=== PATIENT | male | born 1930 | race Caucasian/White ===

== ENCOUNTER 2017-01-11 09:15 | Inpatient (IN) | payer MEDICARE, OTHER ==
[2017-01-11 16:18] LABS: Mean Cell Volume 89.3 fl (78-100); Mean Corpuscular Hemoglobin 30.2 pg (26-32); Platelet Count 181 K/mm3 (150-450); Red Blood Count 5.13 M/mm3 (4.1-5.6); Red Cell Distribution Width 14.3 % (11.5-14.0); White Blood Count 17.4 K/mm3 (4.0-10.5)
[2017-01-11] MEDS ORDERED: Sodium Chloride 0.9% 500 ML 500 ML IV SCH (16:30)
[2017-01-11 16:55] LABS: ALBUMIN 3.6 g/dL (3.4-5.0); ALKALINE PHOSPHATASE 88 U/L (46-116); ANION GAP 16.2 MEQ/L (5-15); BILIRUBIN,TOTAL 1.3 mg/dL (0.2-1.0); BLOOD UREA NITROGEN 15 mg/dL (9-20); CHLORIDE 101 mEq/L (98-107); Carbon Dioxide 21.6 mEq/L (21-32); Glucose 133 MG/DL (70-110); Potassium 4.2 mEq/L (3.5-5.1); SGOT/AST 16 U/L (15-37); SGPT/ALT 14 U/L (12-78); SODIUM 135 mEq/L (136-145)
[2017-01-11] MEDS: Sodium Chloride 0.9% 1000 ML 1,000 ML IV SCH (16:59)
[2017-01-11] MEDS: ROCEPHIN 1 Gm-D5w 50 ml Bag** 50 ML IV SCH (17:00)
[2017-01-11 17:23] LABS: BAND 1 % (0.0-2.0); Platelet Estimate NORMAL (NORMAL); Total Cells Counted 100
[2017-01-11 17:24] LABS: ANISOCYTOSIS 1+
[2017-01-11] MEDS ORDERED: Protonix 40MG Tablet ONE (21:40)
[2017-01-11] MEDS: COREG 12.5 MG PO SCH (21:54)
[2017-01-11] MEDS: ZOCOR 20MG PO SCH (21:54)
[2017-01-11] MEDS: Zestril 20 MG PO SCH (21:54)
[2017-01-11] MEDS ORDERED: Protonix 20MG Tablet PO ONE (22:00)
[2017-01-11] MEDS ORDERED: PLAVIX 75 MG Tablet PO ONE (22:00)
[2017-01-12] MEDS: Sodium Chloride 0.9% 1000 ML 1,000 ML IV SCH ×2 (04:10→13:54)
[2017-01-12] MEDS ORDERED: TYLENOL 325 MG PO PRN (04:41)
[2017-01-12 05:57] LABS: BASOPHIL % 0.2 % (0.0-0.4); Eosinophil % 0.6 % (0.00-5.0); Granulocytes % 79.1 % (36.0-66.0); Mean Cell Volume 90.4 fl (78-100); Mean Corpuscular Hemoglobin 30.3 pg (26-32); Monocytes % 9.1 % (0.0-12.0); Platelet Count 157 K/mm3 (150-450); Red Blood Count 4.49 M/mm3 (4.1-5.6); Red Cell Distribution Width 14.3 % (11.5-14.0); White Blood Count 13.2 K/mm3 (4.0-10.5)
[2017-01-12 06:19] LABS: ALBUMIN 2.9 g/dL (3.4-5.0); ALKALINE PHOSPHATASE 70 U/L (46-116); BLOOD UREA NITROGEN 13 mg/dL (9-20); CHLORIDE 103 mEq/L (98-107); Carbon Dioxide 23.7 mEq/L (21-32); Glucose 114 MG/DL (70-110); SGOT/AST 11 U/L (15-37); SGPT/ALT 7 U/L (12-78); SODIUM 135 mEq/L (136-145); Total Protein 5.9 gm/dL (6.4-8.2)
--- NOTE | 2017-01-12 08:49 | XRAY ---
Indication: Fatigue. UTI. Possible sepsis. Comparison: June 29, 2016. PA/lateral chest less inflated accentuating the cardiopulmonary structures. Lateral view limited due to patient's arm and respiration artifact. New bibasilar infiltrates versus atelectasis without consolidation or large effusion. Heart is borderline in enlarged again demonstrating previous CABG surgery and left-sided Port-A-Cath. Bony thorax intact again with mild osteopenia and degenerative changes. Impression: Underinflated chest with new bibasilar infiltrate/atelectasis. Correlate clinically. Comment: Preliminary interpretation was made by [facility]. No discrepancy.
[2017-01-12] MEDS: COREG 12.5 MG PO SCH ×2 (09:00→21:53)
[2017-01-12] MEDS: Flomax 0.4 MG PO SCH (09:01)
[2017-01-12] MEDS: PLAVIX 75 MG Tablet PO SCH (09:01)
[2017-01-12] MEDS: NORVASC 5 MG PO SCH (09:01)
[2017-01-12] MEDS: Protonix 40MG Tablet PO SCH (09:02)
[2017-01-12] MEDS: Zestril 20 MG PO SCH ×2 (09:02→21:53)
--- NOTE | 2017-01-12 09:17 | PCM.NOTE ---
Date and Time: 01/12/17914 Subjective Assessment: patient reports improvement in symptoms, urinating less frequently overnight and was able to get some sleep. no significant hx of cough Objective Exam General Appearance: no apparent distress, alert Respiratory Exam: normal breath sounds, lungs clear, No respiratory distress Cardiovascular Exam: regular rate/rhythm, normal heart sounds Gastrointestinal/Abdomen Exam: soft, No tenderness, No mass Extremity Exam: normal inspection, normal range of motion OBJECTIVE DATA Vital Signs: Vital Signs - 24 hr Temp Pulse Resp BP Pulse Ox 01/12/17 07:16 97.8 F 70 20 120/64 96 01/12/17 05:07 99.4 F 01/12/17 04:00 100.6 F 72 20 118/63 93 L 01/12/17 00:00 98.1 F 79 20 121/77 95 01/11/17 20:00 97.7 F 77 18 127/72 95 01/11/17 16:16 97.9 F 78 162/73 01/11/17 15:44 97.9 F 78 18 162/73 95 Pain Assessment - Last Documented Pain Intensity 0 Pain Scale Used 0-10 Pain Scale Intake and Output: Intake & Output 01/09/17 01/10/17 01/11/17 01/12/17 11:59 11:59 11:59 11:59 Intake Total 2814 Output Total 650 Balance 2164 Weight 97.023 kg Lab Results: Lab Results-Last 24 Hours 01/11/17 01/11/17 01/12/17 Range/Units 16:10 16:10 05:05 WBC 17.4 H 13.2 H (4.0-10.5) K/mm3 RBC 5.13 4.49 (4.1-5.6) M/mm3 Hgb 15.5 13.6 (12.5-18.0) gm/dl Hct 45.8 40.6 L (42-50) % MCV 89.3 90.4 (78-100) fl MCH 30.2 30.3 (26-32) pg MCHC 33.8 33.5 (32-36) g/dl RDW 14.3 H 14.3 H (11.5-14.0) % Plt Count 181 157 (150-450) K/mm3 MPV 10.0 H 10.0 H (6-9.5) fl Gran % 79.1 H (36.0-66.0) % Lymphocytes % 11.0 L (24.0-44.0) % Monocytes % 9.1 (0.0-12.0) % Eosinophils % 0.6 (0.00-5.0) % Basophils % 0.2 (0.0-0.4) % Segmented Neutrophils 87 H (36.-66.) % Band Neutrophils 1 (0.0-2.0) % Lymphocytes (Manual) 9 L (24-44) % Monocytes (Manual) 3 (0.0-12.0) % Basophils # 0.03 (0-0.4) Differential Comment ABNORMAL Platelet Estimate NORMAL (NORMAL) Anisocytosis 1+ Sodium 135 L (136-145) mEq/L Potassium 4.2 (3.5-5.1) mEq/L Chloride 101 (98-107) mEq/L Carbon Dioxide 21.6 (21-32) mEq/L Anion Gap 16.2 H (5-15) MEQ/L BUN 15 (9-20) mg/dL Creatinine 1.06 (0.55-1.30) mg/dl Estimated GFR > 60 ML/MIN Glucose 133 H (70-110) MG/DL Calcium 8.8 (8.5-10.1) mg/dL Total Bilirubin 1.3 H (0.2-1.0) mg/dL AST 16 (15-37) U/L ALT 14 (12-78) U/L Alkaline Phosphatase 88 (46-116) U/L Serum Total Protein 7.0 (6.4-8.2) gm/dL Albumin 3.6 (3.4-5.0) g/dL 01/12/17 Range/Units 05:05 WBC (4.0-10.5) K/mm3 RBC (4.1-5.6) M/mm3 Hgb (12.5-18.0) gm/dl Hct (42-50) % MCV (78-100) fl MCH (26-32) pg MCHC (32-36) g/dl RDW (11.5-14.0) % Plt Count (150-450) K/mm3 MPV (6-9.5) fl Gran % (36.0-66.0) % Lymphocytes % (24.0-44.0) % Monocytes % (0.0-12.0) % Eosinophils % (0.00-5.0) % Basophils % (0.0-0.4) % Segmented Neutrophils (36.-66.) % Band Neutrophils (0.0-2.0) % Lymphocytes (Manual) (24-44) % Monocytes (Manual) (0.0-12.0) % Basophils # (0-0.4) Differential Comment Platelet Estimate (NORMAL) Anisocytosis Sodium 135 L (136-145) mEq/L Potassium 4.0 (3.5-5.1) mEq/L Chloride 103 (98-107) mEq/L Carbon Dioxide 23.7 (21-32) mEq/L Anion Gap 12.0 (5-15) MEQ/L BUN 13 (9-20) mg/dL Creatinine 0.99 (0.55-1.30) mg/dl Estimated GFR > 60 ML/MIN Glucose 114 H (70-110) MG/DL Calcium 8.2 L (8.5-10.1) mg/dL Total Bilirubin 1.0 (0.2-1.0) mg/dL AST 11 L (15-37) U/L ALT 7 L (12-78) U/L Alkaline Phosphatase 70 (46-116) U/L Serum Total Protein 5.9 L (6.4-8.2) gm/dL Albumin 2.9 L (3.4-5.0) g/dL Radiology Exams: Radiology Procedures Category Date Time Status CHEST 2 VIEWS (PA AND LAT) Routine Exams 01/11/17 16:15 Completed Assessment/Plan (1) UTI (urinary tract infection) Current Visit: Yes Status: Acute Assessment & Plan: on rocephin Code(s): N39.0 - URINARY TRACT INFECTION, SITE NOT SPECIFIED (2) Fever Current Visit: Yes Status: Acute Assessment & Plan: will check flu swab today Code(s): R50.9 - FEVER, UNSPECIFIED (3) Dehydration Current Visit: Yes Status: Acute Assessment & Plan: IV fluids replacing Code(s): E86.0 - DEHYDRATION
[2017-01-12] MEDS ORDERED: NON-FORMULARY ITEM (Esomeprazole Magnesium [Nexium] 20 MG) PO SCH (10:00)
[2017-01-12] MEDS: ROCEPHIN 1 Gm-D5w 50 ml Bag** 50 ML IV SCH (16:18)
[2017-01-12] MEDS: ZOCOR 20MG PO SCH (21:53)
[2017-01-13] MEDS: Sodium Chloride 0.9% 1000 ML 1,000 ML IV SCH ×2 (01:26→11:04)
[2017-01-13] MEDS: Ambien 10 MG PO PRN ×2 (01:36→21:00)
[2017-01-13 05:46] LABS: BASOPHIL % 0.3 % (0.0-0.4); Eosinophil % 1.8 % (0.00-5.0); Granulocytes % 63.4 % (36.0-66.0); Lymphocytes % 21.7 % (24.0-44.0); Mean Cell Volume 90.5 fl (78-100); Mean Corpuscular Hemoglobin 29.5 pg (26-32); Mean Platelet Volume 10.1 fl (6-9.5); Monocytes % 12.8 % (0.0-12.0); Platelet Count 152 K/mm3 (150-450); Red Blood Count 4.41 M/mm3 (4.1-5.6); Red Cell Distribution Width 14.1 % (11.5-14.0); White Blood Count 7.3 K/mm3 (4.0-10.5)
[2017-01-13 06:05] LABS: ALBUMIN 2.5 g/dL (3.4-5.0); ALKALINE PHOSPHATASE 71 U/L (46-116); ANION GAP 13.5 MEQ/L (5-15); BILIRUBIN,TOTAL 0.4 mg/dL (0.2-1.0); BLOOD UREA NITROGEN 13 mg/dL (9-20); CHLORIDE 106 mEq/L (98-107); Carbon Dioxide 24.6 mEq/L (21-32); Glucose 100 MG/DL (70-110); Potassium 3.9 mEq/L (3.5-5.1); SGOT/AST 13 U/L (15-37); SGPT/ALT 10 U/L (12-78); SODIUM 140 mEq/L (136-145); Total Protein 5.6 gm/dL (6.4-8.2)
--- NOTE | 2017-01-13 08:42 | PCM.NOTE ---
Date and Time: 01/13/17840 Subjective Assessment: patient feels well today, voiding well. slept well and has no new complaints Objective Exam General Appearance: no apparent distress, alert Respiratory Exam: normal breath sounds, lungs clear, No respiratory distress Cardiovascular Exam: regular rate/rhythm, normal heart sounds Gastrointestinal/Abdomen Exam: soft, No tenderness, No mass Extremity Exam: normal inspection, normal range of motion OBJECTIVE DATA Vital Signs: Vital Signs - 24 hr Temp Pulse Resp BP Pulse Ox 01/13/17 07:28 99 F 67 20 132/75 96 01/13/17 04:00 100.3 F 69 22 120/55 95 01/13/17 00:00 99.0 F 73 18 131/63 96 01/12/17 20:00 99.4 F 75 20 165/75 95 01/12/17 16:27 98.6 F 89 20 160/75 97 01/12/17 11:15 97.6 F 68 20 129/82 97 Pain Assessment - Last Documented Pain Intensity 0 Pain Scale Used 0-10 Pain Scale Intake and Output: Intake & Output 01/10/17 01/11/17 01/12/17 01/13/17 11:59 11:59 11:59 11:59 Intake Total 2814 4029 Output Total 650 2650 Balance 2164 1379 Weight 97.023 kg Lab Results: Lab Results-Last 24 Hours 01/12/17 01/13/17 01/13/17 Range/Units 09:14 05:15 05:15 WBC 7.3 (4.0-10.5) K/mm3 RBC 4.41 (4.1-5.6) M/mm3 Hgb 13.0 (12.5-18.0) gm/dl Hct 39.9 L (42-50) % MCV 90.5 (78-100) fl MCH 29.5 (26-32) pg MCHC 32.6 (32-36) g/dl RDW 14.1 H (11.5-14.0) % Plt Count 152 (150-450) K/mm3 MPV 10.1 H (6-9.5) fl Gran % 63.4 (36.0-66.0) % Lymphocytes % 21.7 L (24.0-44.0) % Monocytes % 12.8 H (0.0-12.0) % Eosinophils % 1.8 (0.00-5.0) % Basophils % 0.3 (0.0-0.4) % Basophils # 0.02 (0-0.4) Sodium 140 (136-145) mEq/L Potassium 3.9 (3.5-5.1) mEq/L Chloride 106 (98-107) mEq/L Carbon Dioxide 24.6 (21-32) mEq/L Anion Gap 13.5 (5-15) MEQ/L BUN 13 (9-20) mg/dL Creatinine 0.99 (0.55-1.30) mg/dl Estimated GFR > 60 ML/MIN Glucose 100 (70-110) MG/DL Calcium 8.1 L (8.5-10.1) mg/dL Total Bilirubin 0.4 (0.2-1.0) mg/dL AST 13 L (15-37) U/L ALT 10 L (12-78) U/L Alkaline Phosphatase 71 (46-116) U/L Serum Total Protein 5.6 L (6.4-8.2) gm/dL Albumin 2.5 L (3.4-5.0) g/dL Influenza Type A Ag NEGATIVE (NEGATIVE) Influenza Type B Ag NEGATIVE (NEGATIVE) RSV (PCR) NEGATIVE (Negative) Radiology Exams: Radiology Procedures Category Date Time Status CHEST 2 VIEWS (PA AND LAT) Routine Exams 01/11/17 16:15 Completed Assessment/Plan (1) UTI (urinary tract infection) Current Visit: Yes Status: Acute Assessment & Plan: continue rocephin, urine and blood cx pending, should have results today hopefully Code(s): N39.0 - URINARY TRACT INFECTION, SITE NOT SPECIFIED (2) Fever Current Visit: Yes Status: Acute Code(s): R50.9 - FEVER, UNSPECIFIED (3) Dehydration Current Visit: Yes Status: Acute Code(s): E86.0 - DEHYDRATION
[2017-01-13] MEDS: COREG 12.5 MG PO SCH ×2 (09:47→21:01)
[2017-01-13] MEDS: PLAVIX 75 MG Tablet PO SCH (09:48)
[2017-01-13] MEDS: Flomax 0.4 MG PO SCH (09:48)
[2017-01-13] MEDS: Protonix 40MG Tablet PO SCH (09:48)
[2017-01-13] MEDS: NORVASC 5 MG PO SCH (09:48)
[2017-01-13] MEDS: Zestril 20 MG PO SCH ×2 (09:48→21:00)
[2017-01-13] MEDS ORDERED: FLUZONE HIGH-DOSE 2016-17 SYR IM ONE (10:00)
[2017-01-13] MEDS ORDERED: PREVNAR 13 SYRINGE IM ONE (10:00)
[2017-01-13] MEDS: ROCEPHIN 1 Gm-D5w 50 ml Bag** 50 ML IV SCH (17:05)
[2017-01-13] MEDS: ZOCOR 20MG PO SCH (21:00)
[2017-01-14 05:54] LABS: BASOPHIL % 0.4 % (0.0-0.4); Eosinophil % 2.8 % (0.00-5.0); Granulocytes % 67.2 % (36.0-66.0); Lymphocytes % 16.4 % (24.0-44.0); Mean Corpuscular Hemoglobin 30.1 pg (26-32); Monocytes % 13.2 % (0.0-12.0); Platelet Count 179 K/mm3 (150-450); Red Blood Count 4.55 M/mm3 (4.1-5.6); Red Cell Distribution Width 13.9 % (11.5-14.0); White Blood Count 7.2 K/mm3 (4.0-10.5)
[2017-01-14 06:14] LABS: ANION GAP 14.9 MEQ/L (5-15); BLOOD UREA NITROGEN 8 mg/dL (9-20); CHLORIDE 103 mEq/L (98-107); Carbon Dioxide 22.7 mEq/L (21-32); Glucose 135 MG/DL (70-110); Potassium 3.9 mEq/L (3.5-5.1); SODIUM 137 mEq/L (136-145)
[2017-01-14] MEDS ORDERED: Lasix 20 MG/2 ML IV ONE (08:19)
--- NOTE | 2017-01-14 08:23 | PCM.NOTE ---
Date and Time: 01/14/17819 Subjective Assessment: patient had some confusion last night, fell and tore skin on left hand. was trying to go to restroom in the dark, states he couldn't find his call light to ask for help. he denies cough or congestion Objective Exam General Appearance: no apparent distress, alert Respiratory Exam: crackles/rales Cardiovascular Exam: regular rate/rhythm, normal heart sounds Gastrointestinal/Abdomen Exam: soft, No tenderness, No mass Extremity Exam: normal inspection, normal range of motion OBJECTIVE DATA Vital Signs: Vital Signs - 24 hr Temp Pulse Resp BP Pulse Ox 01/14/17 07:38 98.2 F 72 20 160/80 96 01/14/17 04:00 20 01/13/17 23:59 99.6 F 74 20 162/87 92 L 01/13/17 20:00 98.4 F 69 18 195/85 93 L 01/13/17 16:00 99.0 F 62 18 156/72 91 L 01/13/17 11:10 98.2 F 80 20 133/70 97 Pain Assessment - Last Documented Pain Intensity 0 Pain Scale Used 0-10 Pain Scale Intake and Output: Intake & Output 01/11/17 01/12/17 01/13/17 01/14/17 11:59 11:59 11:59 11:59 Intake Total 2814 4029 2856 Output Total 650 2650 2300 Balance 2164 1379 556 Weight 97.023 kg Lab Results: Lab Results-Last 24 Hours 01/14/17 01/14/17 Range/Units 05:30 05:30 WBC 7.2 (4.0-10.5) K/mm3 RBC 4.55 (4.1-5.6) M/mm3 Hgb 13.7 (12.5-18.0) gm/dl Hct 40.5 L (42-50) % MCV 89.0 (78-100) fl MCH 30.1 (26-32) pg MCHC 33.8 (32-36) g/dl RDW 13.9 (11.5-14.0) % Plt Count 179 (150-450) K/mm3 MPV 10.0 H (6-9.5) fl Gran % 67.2 H (36.0-66.0) % Lymphocytes % 16.4 L (24.0-44.0) % Monocytes % 13.2 H (0.0-12.0) % Eosinophils % 2.8 (0.00-5.0) % Basophils % 0.4 (0.0-0.4) % Basophils # 0.03 (0-0.4) Sodium 137 (136-145) mEq/L Potassium 3.9 (3.5-5.1) mEq/L Chloride 103 (98-107) mEq/L Carbon Dioxide 22.7 (21-32) mEq/L Anion Gap 14.9 (5-15) MEQ/L BUN 8 L (9-20) mg/dL Creatinine 0.90 (0.55-1.30) mg/dl Estimated GFR > 60 ML/MIN Glucose 135 H (70-110) MG/DL Calcium 8.2 L (8.5-10.1) mg/dL Radiology Exams: Radiology Procedures Category Date Time Status CHEST 1 VIEW (PORTABLE) Urgent Exams 01/14/17 08:16 Ordered Assessment/Plan (1) Pneumonia Current Visit: Yes Status: Acute Assessment & Plan: ? infiltrate vs atelectasis, concern for volume overload clinically. will check chest xray, add zithromax in case there is infiltrate and give 1 IV dose of lasix 20mg Code(s): J18.9 - PNEUMONIA, UNSPECIFIED ORGANISM (2) UTI (urinary tract infection) Current Visit: Yes Status: Acute Assessment & Plan: c and s negative but had significant pyuria in the office. in any event his wbc is noramlized and he is afebrile Code(s): N39.0 - URINARY TRACT INFECTION, SITE NOT SPECIFIED (3) Fever Current Visit: Yes Status: Acute Code(s): R50.9 - FEVER, UNSPECIFIED
--- NOTE | 2017-01-14 09:05 | XRAY ---
Exam: AP portable chest film from 0825 hours on 01/14/2017. Comparison: Two-view chest from 01/11/2017. Indication: Pneumonia versus CHF. Findings: The heart size appears slightly prominent, but is probably within normal limits for this AP portable technique. Atherosclerotic calcification within the aortic arch and slight tortuosity of the descending thoracic aorta are seen. There is evidence of prior CABG with midline sternotomy. There is an apparent left-sided port entering the left subclavian vein with the tip in the proximal SVC pointing inferiorly and toward the right. I see no central pulmonary vascular congestion. The remainder of the mary and mediastinal structures appears unremarkable. Multiple tiny surgical clips are seen within the right supraclavicular projection and base of the right side of the neck. Correlate with surgical history. Lung volumes are again noted to be relatively low. There appears to be some minimal vascular crowding versus minor atelectatic changes at the lung bases. No definite air space infiltrates or lobar consolidations are seen. No pneumothorax or pleural fluid is seen. Degenerative changes are seen within both shoulder joints. Impression: 1. Lung volumes are relatively low with a suggestion of some minimal vascular crowding versus atelectatic changes at both lung bases. I believe this represents no significant change. 2. No definite air space infiltrates or lobar consolidations are seen. 3. No convincing findings to suggest acute CHF are seen. No other acute cardiopulmonary process is seen. 4. Postsurgical changes as discussed above.
[2017-01-14] MEDS: Zestril 20 MG PO SCH ×2 (09:16→21:26)
[2017-01-14] MEDS: COREG 12.5 MG PO SCH ×2 (09:16→21:26)
[2017-01-14] MEDS: Flomax 0.4 MG PO SCH (09:16)
[2017-01-14] MEDS: PLAVIX 75 MG Tablet PO SCH (09:16)
[2017-01-14] MEDS: NORVASC 5 MG PO SCH (09:16)
[2017-01-14] MEDS: Protonix 40MG Tablet PO SCH (09:16)
[2017-01-14] MEDS: Sodium Chloride 0.9% 1000 ML 1,000 ML IV SCH (09:17)
[2017-01-14] MEDS: Proscar 5 MG PO SCH (09:18)
[2017-01-14] MEDS ORDERED: Zithromax 500 MG/ 250 ML NaCl Premix 250 ML IV SCH (10:00)
[2017-01-14] MEDS: ROCEPHIN 1 Gm-D5w 50 ml Bag** 50 ML IV SCH (16:36)
[2017-01-14] MEDS ORDERED: Lasix 20 MG/2 ML IV SCH (17:00)
[2017-01-14] MEDS: ZOCOR 20MG PO SCH (21:26)
[2017-01-15 06:14] LABS: BASOPHIL % 0.5 % (0.0-0.4); Eosinophil % 4.6 % (0.00-5.0); Lymphocytes % 20.4 % (24.0-44.0); Mean Cell Volume 88.8 fl (78-100); Mean Corpuscular Hemoglobin 29.5 pg (26-32); Mean Platelet Volume 9.6 fl (6-9.5); Monocytes % 11.5 % (0.0-12.0); Platelet Count 185 K/mm3 (150-450); Red Blood Count 4.84 M/mm3 (4.1-5.6); Red Cell Distribution Width 14.1 % (11.5-14.0); White Blood Count 7.3 K/mm3 (4.0-10.5)
[2017-01-15 06:37] LABS: ANION GAP 12.3 MEQ/L (5-15); BLOOD UREA NITROGEN 11 mg/dL (9-20); CHLORIDE 105 mEq/L (98-107); Carbon Dioxide 26.8 mEq/L (21-32); Glucose 131 MG/DL (70-110); Potassium 3.4 mEq/L (3.5-5.1); SODIUM 141 mEq/L (136-145)
[2017-01-15 07:16] VITALS: O2SAT 94
[2017-01-15] MEDS: COREG 12.5 MG PO SCH (09:36)
[2017-01-15] MEDS: Flomax 0.4 MG PO SCH (09:36)
[2017-01-15] MEDS: Zestril 20 MG PO SCH (09:36)
[2017-01-15] MEDS: NORVASC 5 MG PO SCH (09:36)
[2017-01-15] MEDS: PLAVIX 75 MG Tablet PO SCH (09:37)
[2017-01-15] MEDS: Protonix 40MG Tablet PO SCH (09:37)
[2017-01-15] MEDS: Proscar 5 MG PO SCH (09:49)
[2017-01-15] MEDS ORDERED: Klor Con 10 MEQ PO SCH (10:00)
--- NOTE | 2017-01-15 11:10 | PCM.DCORD ---
- Discharge Discharge Date: 01/15/17 Disposition: Home, Self-Care Condition: Stable Prescriptions: New Amoxicillin 500 mg PO TID #21 capsule Continue Amlodipine Besylate 5 mg [Norvasc 5 mg] 5 mg PO DAILY Furosemide 20 mg [Lasix 20 mg] 20 mg PO DAILY Carvedilol 25 mg PO BID Lisinopril 20 mg PO BID Rosuvastatin Calcium [Crestor] 10 mg PO HS Esomeprazole Magnesium [Nexium] 20 mg PO DAILY Tamsulosin HCl 0.4 mg [Flomax 0.4 MG] 1 tablet PO DAILY Clopidogrel Bisulfate 75 mg [PLAVIX 75 MG Tablet] 1 tab PO DAILY
[2017-01-15 11:26] VITALS: BP 137/65; PULSE 67
--- NOTE | 2017-01-17 12:35 | DS ---
DISCHARGE DIAGNOSES: 1) URINARY TRACT INFECTION. 2) UNTOWARD REACTION TO AMBIEN. HOSPITAL COURSE: The patient is an 86 year-old white male patient who had a partially treated urinary tract infection as an outpatient. However, the patient had complaints of frequent urination. He was seen in the office and subsequently admitted to the hospital for failed outpatient treatment for urinary tract infection. The patient's initial white blood cell count was 17,000 range. He was placed on Rocephin and Zithromax IV and his white blood cell count did resolve down to the 7,000 range. However the patient was given Ambien at night one time for rest but apparently had untoward reaction having confusion and was felt to need to clear up from this prior to discharge home. By the morning of 01/15/2017, the patient was back to his usual state of health. His white blood cell count was noted to be 7,300. He had no apparent reason to continue his hospitalization at this time. His son was in the room with him and he was felt to be ready for discharge home at this time. The patient was discharged home on amoxicillin 500 mg t.i.d. to complete his treatment empirically as the urine culture did not grow any specific organism. The patient was discharged home with instructions to follow up in his regular doctor's office next week.
== END 2017-01-15 12:10 | disposition home or self-care (01) | DRG 689 ==
LOC: MED SURG 09:15 → OBSVTOIN 01-12 09:15
PROVIDERS: ADMIT Family Medicine; ATTEND Family Medicine
DX: N39.0 Urinary tract infection, site not specified (principal); J18.9 Pneumonia, unspecified organism; T42.6X5A Adverse effect of other antiepileptic and sedative-hypnotic drugs, initial encounter; E86.0 Dehydration; R79.89 Other specified abnormal findings of blood chemistry; Z79.899 Other long term (current) drug therapy
CPT/HCPCS: 36415; 71010; 71020; 80048; 80053; 83880; 85025; 87040; 87086; 87631; 90662; 90670; G0008; G0009; G0378; J0456; J0696; J1940

== ENCOUNTER 2017-06-19 22:17 | Emergency (ER) | payer MEDICARE, OTHER ==
--- NOTE | 2017-06-19 22:52 | ERPHSYRPT ---
- History of Present Illness Time Seen by Provider: 06/19/17 22:46 Source: patient, family Exam Limitations: no limitations Patient Subjective Stated Complaint: pt denies any pain but states he has been having weakness and an uneasy feeling and states he is having trouble breathing. Triage Nursing Assessment: pt alert and oriented. answers questions approp. skin pink warm and dry. respirations nonlabored. heart rate 40's to 50's afib/ flutter on monitor. Physician History: The patient is an 86-year-old male with his family complaining of feeling mildly weak and mildly short of breath and mildly weak today. He states he just doesn't feel right and is worried that something is wrong. He denies chest pain. He is worried that it might be his heart. He's had a CABG in the past. His past medical history is significant for cancer, BPH, CABG, valve replacement, hypertension, and high cholesterol. Timing/Duration: today Severity: moderate Associated Symptoms: shortness of breath, weakness, No chest pain Allergies/Adverse Reactions: Shellfish *RETIRED-03/14/13 [Shellfish] Allergy (Mild, Verified 06/19/17 22:33) Hives iodine Allergy (Verified 06/19/17 22:33) shellfish allergy lorazepam [From Ativan] Allergy (Verified 06/19/17 22:33) confusion combative midazolam HCl [From Versed] Allergy (Verified 06/19/17 22:33) confusion combative Home Medications: Amlodipine Besylate 5 mg [Norvasc 5 mg] 5 mg PO DAILY 09/13/12 [History] Carvedilol 25 mg PO BID 09/13/12 [History] Furosemide 20 mg [Lasix 20 mg] 20 mg PO DAILY 09/13/12 [History] Lisinopril 20 mg PO DAILY 09/14/12 [History] Rosuvastatin Calcium [Crestor] 10 mg PO HS 05/10/13 [History] Esomeprazole Magnesium [Nexium] 40 mg PO DAILY 03/04/15 [History] Tamsulosin HCl 0.4 mg [Flomax 0.4 MG] 0.4 mg PO DAILY 06/12/15 [History] Clopidogrel Bisulfate 75 mg [PLAVIX 75 MG Tablet] 1 tab PO DAILY 02/04/16 [History] Aspirin EC 325 mg [Ecotrin 325 MG] 325 mg PO DAILY 06/19/17 [History] Hx Tetanus, Diphtheria Vaccination/Date Given: No (ukn) Hx Influenza Vaccination/Date Given: No Hx Pneumococcal Vaccination/Date Given: No Immunizations Up to Date: No - Review of Systems Constitutional: Weakness, No Fever, No Chills Eyes: No Symptoms Ears, Nose, & Throat: No Symptoms Respiratory: Dyspnea, Dyspnea on Exertion (SQUIRES) Cardiac: No Chest Pain, No Edema, No Syncope Abdominal/Gastrointestinal: No Abdominal Pain, No Nausea, No Vomiting, No Diarrhea Genitourinary Symptoms: No Dysuria Musculoskeletal: No Back Pain, No Neck Pain Skin: No Rash Neurological: No Dizziness, No Focal Weakness, No Sensory Changes Psychological: No Symptoms Endocrine: No Symptoms Hematologic/Lymphatic: No Symptoms Immunological/Allergic: No Symptoms All Other Systems: Reviewed and Negative - Past Medical History Pertinent Past Medical History: Yes Neurological History: TIA ENT History: Cataracts Cardiac History: Congestive Heart Failure, High Cholesterol, Hypertension Respiratory History: No Pertinent History Endocrine Medical History: No Pertinent History Musculoskeletal History: No Pertinent History GI Medical History: No Pertinent History History: No Pertinent History Psycho-Social History: No Pertinent History Male Reproductive Disorders: Prostate Problems Other Medical History: follicular lymphomaurinary frequency, CANCER LYMPH NODES - Past Surgical History Past Surgical History: Yes Neuro Surgical History: No Pertinent History Cardiac: CABG, Cardiac Catheterization, Other Respiratory: No Pertinent History Gastrointestinal: No Pertinent History Genitourinary: No Pertinent History Musculoskeletal: Joint Replacement Male Surgical History: No Pertinent History Other Surgical History: bilateral hip replacementbilateral cataracthx lung collapse during open heart, carodid endarterectomy, prostrate surgery - Social History Smoking Status: Former smoker How long have you smoked: 40yrs Exposure to second hand smoke: No Drug Use: none Patient Lives Alone: No - Nursing Vital Signs Nursing Vital Signs: Initial Vital Signs Temperature 98.5 F 06/19/17 22:22 Pulse Rate 43 L 06/19/17 22:22 Respiratory Rate 20 06/19/17 22:22 Blood Pressure 122/78 06/19/17 22:22 O2 Sat by Pulse Oximetry 96 06/19/17 22:22 Pain Scale Pain Intensity 0 - Physical Exam General Appearance: no apparent distress, alert Eye Exam: PERRL/EOMI, eyes nml inspection Ears, Nose, Throat Exam: normal ENT inspection, TMs normal, pharynx normal, moist mucous membranes Neck Exam: normal inspection, non-tender, supple, full range of motion Respiratory Exam: normal breath sounds, lungs clear, No respiratory distress Cardiovascular Exam: normal peripheral pulses, murmur, bradycardia Gastrointestinal/Abdomen Exam: soft, normal bowel sounds, No tenderness, No mass Rectal Exam: not done Back Exam: normal inspection, normal range of motion, No CVA tenderness, No vertebral tenderness Extremity Exam: normal inspection, normal range of motion, pelvis stable Neurologic Exam: alert, oriented x 3, cooperative, normal mood/affect, nml cerebellar function, nml station & gait, sensation nml, No motor deficits Skin Exam: normal color, warm, dry, No rash Lymphatic Exam: No adenopathy SpO2 Interpretation: normal SpO2: 94 Oxygen Delivery: Room Air - Course EKG Interpreted by Me: RATE, A-fib, Other (bradycardia, comp EKG 11/02/13.) - Radiology Exams Chest X-ray Interpretation: Interpreted by me, Infiltrates (diffuse infiltrate RUL, comp CXR 01/11/17) Ordered Tests: Active Orders 24 hr Category Date Time Status EKG-ER Only STAT Care 06/19/17 22:47 Active IV Insertion STAT Care 06/19/17 22:47 Active Oxygen-ED Only NASAL CANNULA 2 lpm Care 06/19/17 22:49 Active CHEST 2 VIEWS (PA AND LAT) Stat Exams 06/19/17 22:47 Taken CBC W DIFF Stat Lab 06/19/17 22:59 Completed CMP Stat Lab 06/19/17 22:59 Completed PROTIME WITH INR Stat Lab 06/19/17 22:59 Completed Potassium Stat Lab 06/19/17 00:07 Completed TROPONIN Q3H Lab 06/19/17 23:00 Completed TROPONIN Q3H Lab 06/20/17 02:00 Ordered TROPONIN Q3H Lab 06/20/17 05:00 Ordered TROPONIN Q3H Lab 06/20/17 08:00 Ordered TROPONIN Q3H Lab 06/20/17 11:00 Ordered UA W/RFX UR CULTURE Stat Lab 06/19/17 22:47 Ordered Medication Summary Generic Name Dose Route Start Last Admin Trade Name Freq PRN Reason Stop Dose Admin Dextrose 500 mls @ 500 mls/hr 06/20/17 00:30 Dextrose 10% 250 Ml IV 07/20/17 00:29 .Q1H PABLO Discontinued Medications Generic Name Dose Route Start Last Admin Trade Name Samantha PRN Reason Stop Dose Admin Insulin Human Regular 10 unit 06/20/17 00:32 Novolin R IV 06/20/17 00:33 STAT ONE Insulin Human Regular Confirm 06/20/17 00:36 Novolin R Administered 06/20/17 00:37 Dose 10 unit .ROUTE .STK-MED ONE Lab/Rad Data: Laboratory Result Diagrams 06/19/17 22:59 06/19/17 22:59 Laboratory Results 06/19/17 06/19/17 06/19/17 Range/Units 23:00 22:59 22:59 WBC (4.0-10.5) K/mm3 RBC (4.1-5.6) M/mm3 Hgb (12.5-18.0) gm/dl Hct (42-50) % MCV (78-100) fl MCH (26-32) pg MCHC (32-36) g/dl RDW (11.5-14.0) % Plt Count (150-450) K/mm3 MPV (6-9.5) fl Gran % (36.0-66.0) % Lymphocytes % (24.0-44.0) % Monocytes % (0.0-12.0) % Eosinophils % (0.00-5.0) % Basophils % (0.0-0.4) % Basophils # (0-0.4) INR 1.11 (0.8-3.0) Sodium 140 (136-145) mEq/L Potassium 7.2 H* (3.5-5.1) mEq/L Chloride 107 (98-107) mEq/L Carbon Dioxide 23.9 (21-32) mEq/L Anion Gap 16.1 H (5-15) MEQ/L BUN 28 H (9-20) mg/dL Creatinine 1.68 H (0.55-1.30) mg/dl Estimated GFR 42 ML/MIN Glucose 114 H (70-110) MG/DL Calcium 9.1 (8.5-10.1) mg/dL Total Bilirubin 0.80 (0.2-1.0) mg/dL AST 14 L (15-37) U/L ALT 16 (12-78) U/L Alkaline Phosphatase 84 (46-116) U/L Troponin I < 0.017 (0.000-0.056) ng/ml Serum Total Protein 6.5 (6.4-8.2) gm/dL Albumin 4.1 (3.4-5.0) g/dL Ur Collection Type Urine Color (YELLOW) Urine Appearance (CLEAR) Urine pH (5-6) Ur Specific [place] (1.005-1.025) Urine Protein (Negative) Urine Ketones (NEGATIVE) Urine Blood (0-5) Jose/ul Urine Nitrite (NEGATIVE) Urine Bilirubin (NEGATIVE) Urine Urobilinogen (0-1) mg/dL Ur Leukocyte Esterase (NEGATIVE) Urine Glucose (NEGATIVE) mg/dL Specimen Received 06/19/17 06/19/17 06/19/17 Range/Units 22:59 00:54 00:07 WBC 7.8 (4.0-10.5) K/mm3 RBC 5.04 (4.1-5.6) M/mm3 Hgb 14.9 (12.5-18.0) gm/dl Hct 45.4 (42-50) % MCV 90.1 (78-100) fl MCH 29.6 (26-32) pg MCHC 32.8 (32-36) g/dl RDW 14.7 H (11.5-14.0) % Plt Count 203 (150-450) K/mm3 MPV 10.1 H (6-9.5) fl Gran % 64.7 (36.0-66.0) % Lymphocytes % 24.8 (24.0-44.0) % Monocytes % 8.7 (0.0-12.0) % Eosinophils % 1.7 (0.00-5.0) % Basophils % 0.1 (0.0-0.4) % Basophils # 0.01 (0-0.4) INR (0.8-3.0) Sodium (136-145) mEq/L Potassium 7.5 H* (3.5-5.1) mEq/L Chloride (98-107) mEq/L Carbon Dioxide (21-32) mEq/L Anion Gap (5-15) MEQ/L BUN (9-20) mg/dL Creatinine (0.55-1.30) mg/dl Estimated GFR ML/MIN Glucose (70-110) MG/DL Calcium (8.5-10.1) mg/dL Total Bilirubin (0.2-1.0) mg/dL AST (15-37) U/L ALT (12-78) U/L Alkaline Phosphatase (46-116) U/L Troponin I (0.000-0.056) ng/ml Serum Total Protein (6.4-8.2) gm/dL Albumin (3.4-5.0) g/dL Ur Collection Type VOID Urine Color YELLOW (YELLOW) Urine Appearance CLEAR (CLEAR) Urine pH 6.0 (5-6) Ur Specific [place] 1.020 (1.005-1.025) Urine Protein NEGATIVE (Negative) Urine Ketones NEGATIVE (NEGATIVE) Urine Blood NEGATIVE (0-5) Jose/ul Urine Nitrite NEGATIVE (NEGATIVE) Urine Bilirubin NEGATIVE (NEGATIVE) Urine Urobilinogen NORMAL (0-1) mg/dL Ur Leukocyte Esterase NEGATIVE (NEGATIVE) Urine Glucose NEGATIVE (NEGATIVE) mg/dL Specimen Received 06/20/175 - Progress Progress: unchanged Progress Note: 06/20/17 01:04 Pt has serum K of 7.2, redraw K is 7.5. Pt given 10 units reg insulin in 500 ml 10 % dextrose over 60 min IV. Pt transferred to [facility] after speaking with Dr See. Counseled pt/family regarding: lab results, diagnosis, rad results - Departure Time of Disposition: 01:06 Departure Disposition: Transfer (Transfer to [facility] per HECTOR Hare for Dr Cline and Dr See.) Clinical Impression: Afib, Bradyarrhythmia, Hyperkalemia Condition: Stable Critical Care Time: No Additional Instructions: You have A-fib with bradycardia and hyperkalemia. You are being transferred to [facility] per Aline See and Marlyn.
[2017-06-19 23:04] LABS: BASOPHIL % 0.1 % (0.0-0.4); Eosinophil % 1.7 % (0.00-5.0); Granulocytes % 64.7 % (36.0-66.0); Lymphocytes % 24.8 % (24.0-44.0); Mean Cell Volume 90.1 fl (78-100); Mean Corpuscular Hemoglobin 29.6 pg (26-32); Mean Platelet Volume 10.1 fl (6-9.5); Monocytes % 8.7 % (0.0-12.0); Platelet Count 203 K/mm3 (150-450); Red Blood Count 5.04 M/mm3 (4.1-5.6); Red Cell Distribution Width 14.7 % (11.5-14.0); White Blood Count 7.8 K/mm3 (4.0-10.5)
[2017-06-19 23:12] LABS: INR 1.11 (0.8-3.0); PROTIME 12.5 SECONDS (8.83-12.87)
[2017-06-19 23:53] LABS: Carbon Dioxide 23.9 mEq/L (21-32); Potassium 7.2 mEq/L (3.5-5.1)
[2017-06-19 23:54] LABS: ALBUMIN 4.1 g/dL (3.4-5.0); ANION GAP 16.1 MEQ/L (5-15); BILIRUBIN,TOTAL 0.8 mg/dL (0.2-1.0); Total Protein 6.5 gm/dL (6.4-8.2)
[2017-06-20] MEDS ORDERED: DEXTROSE 10% IV SCH (00:30)
[2017-06-20] MEDS ORDERED: NovoLIN R IV ONE (00:32)
[2017-06-20] MEDS ORDERED: DEXTROSE 10% IV ONE (00:34)
[2017-06-20] MEDS ORDERED: NovoLIN R ONE (00:36)
[2017-06-20 00:57] LABS: ADD URINE CULTURE? NO (NO); Bilirubin NEGATIVE (NEGATIVE); Blood NEGATIVE Ery/ul (0-5); COMPLETE URINE MICROSCOPIC? NO; Collection Type VOID; Glucose NEGATIVE (NEGATIVE); Leukocyte Esterase NEGATIVE (NEGATIVE)
[2017-06-20 02:14] VITALS: BP 121/71; PULSE 75; O2SAT 97
--- NOTE | 2017-06-20 08:41 | XRAY ---
Indication: Short of breath and weakness. Comparison: January 14, 2017. PA/lateral chest hyperinflated and clear. Heart is not enlarged and again demonstrates previous CABG surgery and left-sided Port-A-Cath. Also stable right neck postsurgical changes. Bony thorax intact again with mild osteopenia and degenerative changes. Impression: Stable nonacute hyperinflated chest with chronic features.
== END 2017-06-20 02:10 | disposition short-term general hospital (02) ==
LOC: ED 22:17
DX: I48.91 Unspecified atrial fibrillation (principal); I49.8 Other specified cardiac arrhythmias; E87.5 Hyperkalemia; R06.02 Shortness of breath; Z95.1 Presence of aortocoronary bypass graft; I10 Essential (primary) hypertension; E78.00 Pure hypercholesterolemia, unspecified; Z79.899 Other long term (current) drug therapy; Z86.73 Personal history of transient ischemic attack (TIA), and cerebral infarction without residual deficits; I50.9 Heart failure, unspecified
CPT/HCPCS: 36000; 36415; 71020; 80053; 81002; 84132; 84484; 85025; 85610; 93005; 96365; 99284; A9270-GY

== ENCOUNTER 2018-05-10 21:00 | Inpatient (IN) | payer MEDICARE, OTHER ==
[2018-05-10] MEDS ORDERED: TYLENOL 325 MG PO (21:51)
[2018-05-10] MEDS ORDERED: DUONEB 0.5-3 MG/3 ml Neb IH (22:20)
[2018-05-10 22:26] LABS: BASOPHIL % 0.3 % (0.0-0.4); Basophil (Absolute #) 0.02 (0-0.4); Eosinophil (Absolute #) 0.06 (0-0.5); Granulocyte Absolute (ANC) 4.32 (1.4-6.9); Granulocytes % 74.3 % (36.0-66.0); Hematocrit 41.6 % (42-50); Hemoglobin 13.7 gm/dl (12.5-18.0); Lymphocyte (Absolute #) 0.95 (1.0-4.6); Lymphocytes % 16.3 % (24.0-44.0); Mean Cell Volume 88.3 fl (78-100); Mean Corpuscular Hemoglobin 29.1 pg (26-32); Mean Corpuscular Hgb Concent. 32.9 g/dl (32-36); Mean Platelet Volume 9.4 fl (6-9.5); Monocyte (Absolute #) 0.47 (0.0-1.3); Monocytes % 8.1 % (0.0-12.0); Platelet Count 150 K/mm3 (150-450); Red Blood Count 4.71 M/mm3 (4.1-5.6); Red Cell Distribution Width 15.4 % (11.5-14.0); White Blood Count 5.8 K/mm3 (4.0-10.5)
[2018-05-10] MEDS: DUONEB 0.5-3 MG/3 ml Neb IH (22:28)
[2018-05-10] MEDS: Sodium Chloride 0.9% 500 ML 500 ML IV (22:29)
[2018-05-10 22:33] LABS: ADD MANUAL DIFF? NO (NO)
[2018-05-10 22:49] LABS: PROTIME 32.6 SECONDS (8.83-12.87)
[2018-05-10 22:49] LABS: INR 2.77 (0.8-3.0)
[2018-05-10 23:07] LABS: ALBUMIN 3.6 g/dL (3.5-5.0); ALKALINE PHOSPHATASE 96 U/L (38-126); ANION GAP 11.2 MEQ/L (5-15); BLOOD UREA NITROGEN 17 mg/dL (9-20); CHLORIDE 106 mmol/L (98-107); Calcium 8.7 mg/dL (8.4-10.2); Carbon Dioxide 25 mmol/L (22-30); Creatinine 1 0.93 mg/dL (0.66-1.25); EST GLOMERULAR FILTRATION RATE > 60.0 ML/MIN; Glucose 140 mg/dL (74-106); Potassium 3.8 mmol/L (3.5-5.1); SGOT/AST 15 U/L (17-59); SGPT/ALT 11 U/L (0-50); SODIUM 138 mmol/L (137-145); Total Protein 6.2 g/dL (6.3-8.2)
[2018-05-10] MEDS ORDERED: ROCEPHIN 1 Gm-D5w 50 ml Bag** 1 G/50 ML IVPB IV (23:43)
[2018-05-10] MEDS ORDERED: Zithromax 500 MG/ 250 ML NaCl Premix 500 MG/250 ML IVPB IV (23:43)
[2018-05-10] MEDS: COREG 12.5 MG PO (23:46)
[2018-05-10] MEDS: Lactated Ringers 1,000 ML IV (23:46)
[2018-05-10] MEDS: ROCEPHIN 1 Gm-D5w 50 ml Bag** 1 G/50 ML IVPB IV (23:51)
[2018-05-10 23:55] LABS: TROPONIN 0.021 ng/mL (0.000-0.034)
[2018-05-10 23:55] LABS: NT PRO BNP 1760 pg/mL (0-1800)
[2018-05-11] MEDS: Zithromax 500 MG/ 250 ML NaCl Premix 500 MG/250 ML IVPB IV ×2 (00:02→22:32)
[2018-05-11 01:58] LABS: Appearance CLEAR (CLEAR); Bacteria FEW /HPF (NEGATIVE); Bilirubin MODERATE (NEGATIVE); Blood TRACE NON-HEM Ery/ul (0-5); COMPLETE URINE MICROSCOPIC? YES; Collection Type VOID; Epithelial Cells FEW /HPF (FEW); Glucose 50 mg/dL (NEGATIVE); Ketones NEGATIVE (NEGATIVE); Leukocyte Esterase NEGATIVE (NEGATIVE); Mucus MANY /HPF (NEGATIVE); Nitrite NEGATIVE (NEGATIVE); Protein,Urine Dip TRACE (Negative); Specific Gravity 1.025 (1.005-1.025); Urobilinogen 4 mg/dL (0-1)
[2018-05-11 01:59] LABS: RBC 0-2 /HPF (0-2)
[2018-05-11] MEDS: DUONEB 0.5-3 MG/3 ml Neb IH ×3 (05:45→19:21)
[2018-05-11 07:42] LABS: BASOPHIL % 0.2 % (0.0-0.4); Basophil (Absolute #) 0.01 (0-0.4); Eosinophil % 2.1 % (0.00-5.0); Granulocyte Absolute (ANC) 3.09 (1.4-6.9); Granulocytes % 65.7 % (36.0-66.0); Hemoglobin 13.6 gm/dl (12.5-18.0); Lymphocyte (Absolute #) 0.92 (1.0-4.6); Lymphocytes % 19.5 % (24.0-44.0); Mean Corpuscular Hemoglobin 29.2 pg (26-32); Mean Corpuscular Hgb Concent. 33.2 g/dl (32-36); Mean Platelet Volume 9.5 fl (6-9.5); Monocyte (Absolute #) 0.59 (0.0-1.3); Monocytes % 12.5 % (0.0-12.0); Platelet Count 144 K/mm3 (150-450); Red Blood Count 4.66 M/mm3 (4.1-5.6); Red Cell Distribution Width 15.4 % (11.5-14.0); White Blood Count 4.7 K/mm3 (4.0-10.5)
[2018-05-11 07:58] LABS: ANION GAP 10.3 MEQ/L (5-15); BLOOD UREA NITROGEN 15 mg/dL (9-20); CHLORIDE 104 mmol/L (98-107); Calcium 8.3 mg/dL (8.4-10.2); Carbon Dioxide 26 mmol/L (22-30); Creatinine 1 0.71 mg/dL (0.66-1.25); EST GLOMERULAR FILTRATION RATE > 60.0 ML/MIN; Glucose 91 mg/dL (74-106); Potassium 3.9 mmol/L (3.5-5.1); SODIUM 137 mmol/L (137-145)
[2018-05-11 09:08] LABS: ADD MANUAL DIFF? NO (NO)
[2018-05-11] MEDS ORDERED: Coumadin 5 MG PO (09:30)
[2018-05-11] MEDS ORDERED: NON-FORMULARY ITEM (Esomeprazole Magnesium [Nexium] 20 MG) PO (10:00)
[2018-05-11] MEDS ORDERED: KETOROLAC TROMETHAMINE OP (10:00)
[2018-05-11] MEDS: NORVASC 5 MG PO (10:08)
[2018-05-11] MEDS: COREG 12.5 MG PO ×2 (10:08→21:40)
[2018-05-11] MEDS: DELTASONE 20 MG PO (10:09)
[2018-05-11] MEDS: ECOTRIN 81 MG PO (10:09)
[2018-05-11] MEDS: Zestril 20 MG PO ×2 (10:09→21:40)
[2018-05-11] MEDS: Protonix 40MG Tablet PO (10:09)
[2018-05-11] MEDS: Lexapro 10 MG PO ×2 (10:09→16:21)
[2018-05-11] MEDS: PRED-FORTE 1% OPHTHALMIC OP ×3 (10:11→21:41)
[2018-05-11] MEDS: Acular OPTH SOL OP ×3 (10:11→21:41)
[2018-05-11] MEDS: Flomax 0.4 MG PO (10:14)
[2018-05-11] MEDS: Lactated Ringers 1,000 ML IV (13:30)
[2018-05-11 14:28] LABS: HEMOGLOBIN A1C 6.05 % (4.5-6.0)
[2018-05-11] MEDS: Coumadin 5 MG PO (17:43)
[2018-05-11] MEDS: ROCEPHIN 1 Gm-D5w 50 ml Bag** 1 G/50 ML IVPB IV (21:39)
[2018-05-11] MEDS: ZOCOR 20MG PO (21:40)
[2018-05-11] MEDS ORDERED: NON-FORMULARY ITEM (Rosuvastatin Calcium [Crestor] 10 MG) PO (22:00)
[2018-05-12] MEDS: DUONEB 0.5-3 MG/3 ml Neb IH ×4 (00:37→19:00)
[2018-05-12] MEDS: Lactated Ringers 1,000 ML IV ×2 (03:24→15:55)
[2018-05-12] MEDS: Zestril 20 MG PO ×2 (08:38→21:22)
[2018-05-12] MEDS: DELTASONE 20 MG PO (08:39)
[2018-05-12] MEDS: ECOTRIN 81 MG PO (08:41)
[2018-05-12] MEDS: Protonix 40MG Tablet PO (08:41)
[2018-05-12] MEDS: Lexapro 10 MG PO (08:41)
[2018-05-12] MEDS: Flomax 0.4 MG PO (08:42)
[2018-05-12] MEDS: NORVASC 5 MG PO (08:43)
[2018-05-12] MEDS: COREG 12.5 MG PO ×2 (08:43→21:22)
[2018-05-12] MEDS: Acular OPTH SOL OP ×3 (08:44→21:59)
[2018-05-12] MEDS: PRED-FORTE 1% OPHTHALMIC OP ×3 (08:44→21:59)
[2018-05-12] MEDS: Coumadin 5 MG PO (18:57)
[2018-05-12] MEDS: ROCEPHIN 1 Gm-D5w 50 ml Bag** 1 G/50 ML IVPB IV (21:22)
[2018-05-12] MEDS: ZOCOR 20MG PO (21:22)
[2018-05-12] MEDS: NovoLOG Insulin SQ (21:32)
[2018-05-12] MEDS: Zithromax 500 MG/ 250 ML NaCl Premix 500 MG/250 ML IVPB IV (22:04)
[2018-05-13] MEDS: DUONEB 0.5-3 MG/3 ml Neb IH ×2 (01:10→07:16)
[2018-05-13] MEDS: Lactated Ringers 1,000 ML IV (03:37)
[2018-05-13] MEDS: COREG 12.5 MG PO (10:29)
[2018-05-13] MEDS: Zestril 20 MG PO (10:29)
[2018-05-13] MEDS: NORVASC 5 MG PO (10:29)
[2018-05-13] MEDS: Lexapro 10 MG PO (10:29)
[2018-05-13] MEDS: Protonix 40MG Tablet PO (10:29)
[2018-05-13] MEDS: Flomax 0.4 MG PO (10:29)
[2018-05-13] MEDS: ECOTRIN 81 MG PO (10:30)
[2018-05-13] MEDS: Acular OPTH SOL OP (10:30)
[2018-05-13] MEDS: PRED-FORTE 1% OPHTHALMIC OP (10:30)
[2018-05-13] MEDS: DELTASONE 20 MG PO (10:33)
== END 2018-05-13 13:20 | disposition home or self-care (01) ==
LOC: MED SURG 21:00
CPT/HCPCS: 36415; 71046; 80048; 80053; 81000; 83036; 83880; 84484; 85025; 85610; 87086; 93005; 94150; 94640; 94760; J0456; J0696; J1642

== ENCOUNTER 2020-10-25 13:04 | Emergency (ER) | payer MEDICARE, OTHER ==
--- NOTE | 2020-10-25 13:15 | ERPHSYRPT ---
- History of Present Illness Time Seen by Provider: 10/25/20 13:15 Source: patient Exam Limitations: no limitations Physician History: This is an 89-year-old white male who has a significant cardiac history including CABG, valve replacement, hypertension and is taking warfarin. In addition he has peripheral vascular disease and has had a carotid endarterectomy in the past. Patient's senior it specialist is Dr. Farmer. Patient's primary care doctor is Dr. Aburto. Approximately 5 PM yesterday patient fell out of his [place] vehicle. He states that he did hit his head and lost consciousness for about 10 to 15 seconds. He landed on his left side and complains of some left rib pain and left femur pain. He fell onto his left hip. He states he does not have much pain there but his left femur hurts when he tries to walk. Patient has no chest pain and he has no abdominal pain. Occurred: yesterday Injuries/Pain Location: head, chest (Left ribs), lower extremity (Left hip and left femur) Loss of Consciousness: brief (seconds) Modifying Factors: Improves With: movement, other (Hurts to bear weight on the left femur.) Associated Symptoms (Fall): extremity injury, trouble walking Allergies/Adverse Reactions: Shellfish *RETIRED-03/14/13 [Shellfish] Allergy (Mild, Verified 10/25/20 13:26) Hives iodine Allergy (Verified 10/25/20 13:26) shellfish allergy lorazepam [From Ativan] Allergy (Verified 10/25/20 13:26) confusion combative midazolam HCl [From Versed] Allergy (Verified 10/25/20 13:26) confusion combative Home Medications: Carvedilol 25 mg PO BID 09/13/12 [History] Furosemide 20 mg [Lasix 20 mg] 20 mg PO DAILY 09/13/12 [History] Esomeprazole Magnesium [Nexium] 20 mg PO DAILY 03/04/15 [History] Tamsulosin HCl 0.4 mg [Flomax 0.4 MG] 0.4 mg PO DAILY 06/12/15 [History] Aspirin EC 81 mg [Ecotrin 81 mg] 81 mg PO DAILY 08/03/17 [History] Warfarin Sodium 5 mg [Coumadin 5 MG] 5 mg PO UD 08/03/17 [History] Lisinopril 20 mg [Zestril 20 MG] 20 mg PO BID 05/10/18 [History] Escitalopram Oxalate 10 mg PO DAILY 05/11/18 [History] Rosuvastatin Calcium 10 mg PO DAILY 05/11/18 [History] Amlodipine Besylate 1 tab PO DAILY 10/25/20 [History] Sacubitril/Valsartan [Entresto 49 mg-51 mg Tablet] 1 tab PO DAILY 10/25/20 [History] Hx Tetanus, Diphtheria Vaccination/Date Given: No (ukn) Hx Influenza Vaccination/Date Given: No Hx Pneumococcal Vaccination/Date Given: No Travel Risk - International Travel Have you traveled outside of the country in past 3 weeks: No - Coronavirus Screening Are you exhibiting any of the following symptoms?: No Close contact with a COVID-19 positive Pt in past 14-21 Days: No - Review of Systems Constitutional: No Symptoms Eyes: No Symptoms Ears, Nose, & Throat: No Symptoms Respiratory: No Symptoms Cardiac: No Symptoms Abdominal/Gastrointestinal: No Symptoms Genitourinary Symptoms: No Symptoms Musculoskeletal: Fall, Injury (Left hip and femur), Other (Left lateral ribs) Skin: No Symptoms Neurological: No Symptoms Psychological: No Symptoms Endocrine: No Symptoms Hematologic/Lymphatic: No Symptoms Immunological/Allergic: No Symptoms All Other Systems: Reviewed and Negative - Past Medical History Pertinent Past Medical History: Yes Neurological History: TIA ENT History: Cataracts Cardiac History: Angina, Arrhythmia, High Cholesterol, Hypertension, Myocardial Infarction ([place]) Respiratory History: COPD Endocrine Medical History: No Pertinent History Musculoskeletal History: Arthritis GI Medical History: No Pertinent History History: No Pertinent History Psycho-Social History: No Pertinent History Male Reproductive Disorders: Prostate Problems Other Medical History: PACEMAKER - Past Surgical History Past Surgical History: Yes Neuro Surgical History: No Pertinent History Cardiac: CABG, Cardiac Catheterization, Other Respiratory: No Pertinent History Gastrointestinal: No Pertinent History Genitourinary: No Pertinent History Musculoskeletal: Joint Replacement Male Surgical History: No Pertinent History Other Surgical History: bilateral hip replacement,bilateral cataract ,hx lung collapse during open heart, carodid endarterectomy, prostate surgery - Social History Smoking Status: Never smoker How long have you smoked: 40yrs Exposure to second hand smoke: No Drug Use: none Patient Lives Alone: No - Nursing Vital Signs Nursing Vital Signs: Initial Vital Signs Temperature 97.9 F 10/25/20 13:16 Pulse Rate 78 10/25/20 13:16 Blood Pressure 168/84 10/25/20 13:16 O2 Sat by Pulse Oximetry 93 L 10/25/20 13:16 Pain Scale Pain Intensity 0 - Kathy Coma Score Best Eye Response (Kathy): (4) open spontaneously Best Verbal Response (Kathy): (5) oriented Best Motor Response (Kathy): (6) obeys commands Kathy Total: 15 - Physical Exam General Appearance: no apparent distress, alert, anxiety Head Injury: no evidence of injury Eye Exam: PERRL/EOMI, eyes nml inspection ENT Exam: airway nml, nml ext.inspection, No evidence of ENT injury Neck Exam: supple, trachea midline, full range of motion, normal alignment, normal inspection Respiratory/Chest Exam: normal breath sounds, No chest tenderness, No respiratory distress, No ecchymosis, No crepitus, No decreased breath sounds Cardiovascular Exam: normal heart sounds, regular rate/rhythm, normal peripheral pulses Gastrointestinal Exam: soft, normal bowel sounds, No tenderness Rectal Exam: not done Back Exam: normal inspection, normal range of motion, No CVA tenderness, No vertebral tenderness Extremity Exam: pelvis stable, pain with movement (Left hip and femur), No deformities Neurologic Exam: alert, oriented x 3, cooperative, assistant restaurant general manager II-XII nml as tested, normal mood/affect, sensation nml Skin Exam: normal color, warm SpO2 Interpretation: normal O2 Delivery: Room Air - Course Nursing assessment & vital signs reviewed: Yes EKG Interpreted by Me: RATE (75), Non-specific ST Changes, Other (There is a second-degree AV block Mobitz 2 listed on this EKG. I do not see any acute ischemic changes. When compared to an EKG dated 05/10/2018 there does not appear to be any significant changes acutely.) Ordered Tests: Active Orders 24 hr Category Date Time Status Environmental Studies Professor STAT Care 10/25/20 13:27 Active EKG-ER Only STAT Care 10/25/20 13:25 Active IV Insertion STAT Care 10/25/20 13:25 Active CHEST 1 VIEW (PORTABLE) Stat Exams 10/25/20 14:24 Taken FEMUR Stat Exams 10/25/20 13:28 Taken HEAD WITHOUT CONTRAST [CT] Stat Exams 10/25/20 13:27 Taken HIP UNI (2V) INCL PEL IF DONE Stat Exams 10/25/20 13:28 Taken KNEE (3 VIEWS) Stat Exams 10/25/20 13:28 Taken CBC W DIFF Stat Lab 10/25/20 13:25 Completed CMP Stat Lab 10/25/20 13:25 Completed PROTIME WITH INR Stat Lab 10/25/20 13:25 Completed Medication Summary Discontinued Medications Generic Name Dose Route Start Last Admin Trade Name Samantha PRN Reason Stop Dose Admin Morphine Sulfate 2 mg 10/25/20 13:42 10/25/20 13:45 Morphine Sulfate 2 Mg Inj IV 10/25/20 13:43 2 mg STAT ONE Administration Morphine Sulfate Confirm 10/25/20 13:40 Morphine Sulfate 2 Mg Inj Administered 10/25/20 13:41 Dose 2 mg .ROUTE .STK-MED ONE Ondansetron HCl Confirm 10/25/20 13:40 Zofran 4 Mg/2 Ml Vial Administered 10/25/20 13:41 Dose 4 mg .ROUTE .STK-MED ONE Ondansetron HCl 4 mg 10/25/20 13:42 10/25/20 13:45 Zofran 4 Mg/2 Ml Vial IV 10/25/20 13:43 4 mg STAT ONE Administration Lab/Rad Data: Laboratory Result Diagrams 10/25/20 13:25 10/25/20 13:25 Laboratory Results 10/25/20 10/25/20 10/25/20 Range/Units 13:25 13:25 13:25 WBC 10.4 (4.0-10.5) K/mm3 RBC 5.32 (4.1-5.6) M/mm3 Hgb 15.9 (12.5-18.0) gm/dl Hct 49.0 (42-50) % MCV 92.1 (78-100) fl MCH 29.9 (26-32) pg MCHC 32.4 (32-36) g/dl RDW 15.8 H (11.5-14.0) % Plt Count 177 (150-450) K/mm3 MPV 10.1 (7.5-11.0) fl Gran % 67.1 H (36.0-66.0) % Eos # (Auto) 0.16 (0-0.5) Absolute Lymphs (auto) 2.22 (1.0-4.6) Absolute Monos (auto) 1.02 (0.0-1.3) Lymphocytes % 21.4 L (24.0-44.0) % Monocytes % 9.8 (0.0-12.0) % Eosinophils % 1.5 (0.00-5.0) % Basophils % 0.2 (0.0-0.4) % Absolute Granulocytes 6.97 H (1.4-6.9) Basophils # 0.02 (0-0.4) PT 23.5 H (8.83-12.87) SECONDS INR 2.06 (0.8-3.0) Sodium 137 (137-145) mmol/L Potassium 4.9 (3.5-5.1) mmol/L Chloride 101 (98-107) mmol/L Carbon Dioxide 29 (22-30) mmol/L Anion Gap 12.4 (5-15) MEQ/L BUN 19 (9-20) mg/dL Creatinine 0.97 (0.66-1.25) mg/dL Estimated GFR > 60.0 ML/MIN Glucose 113 H (74-106) mg/dL Calcium 9.3 (8.4-10.2) mg/dL Total Bilirubin 1.10 (0.2-1.3) mg/dL AST 29 (17-59) U/L ALT 17 (0-50) U/L Alkaline Phosphatase 84 (38-126) U/L Serum Total Protein 6.9 (6.3-8.2) g/dL Albumin 4.4 (3.5-5.0) g/dL - Progress Progress: unchanged, pain not gone completely, re-examined Progress Note: 10/25/20 15:43 CAT scan of the head without contrast reveals no intracranial abnormality. X-ray of the patient's pelvis reveals no acute fracture or dislocation. X-ray of the left hip reveals no acute fracture or dislocation. X-ray of the left femur reveals no evidence of acute fracture or dislocation. X-ray of left knee reveals no evidence of acute fracture or dislocation. 10/25/20 16:09 Medical decision making: This patient does not appear to have any fractured or dislocated bones. I reviewed the work-up with the patient and we also contacted the patient's family member who is waiting outside. He appears to have more of a contusion of muscle and possible bone. Patient will be discharged to home and use his walker. We will give him [place] pain pill and prescription for more [place]'s for the next 2 to 3 days. He will ice the area 3 times a day for the next 48 hours. Counseled pt/family regarding: lab results, diagnosis, need for follow-up, rad results - Departure Departure Disposition: Home Clinical Impression: Fall with injury Condition: Stable Critical Care Time: No Referrals: SIMEON ABURTO MD [Primary Care Provider] - Additional Instructions: Ice pack to tender area 3 times a day for the next 48 hours. Use your walker while ambulating. Take your medication as prescribed. You may return to the emergency department if your symptoms worsen. Follow-up with your primary care doctor or [facility]opedic clinic if your symptoms are not worse but are not improving. Prescriptions: Hydrocodone/APAP 5/325 [[place] 5/325 mg] 1 each PO Q12H PRN PRN #5 tablet MDD 2 PRN Reason: Pain
[2020-10-25 13:38] LABS: Absolute Neutrophil Ct (ANC) 6.97 (1.4-6.9); BASOPHIL % 0.2 % (0.0-0.4); Basophil (Absolute #) 0.02 (0-0.4); Eosinophil % 1.5 % (0.00-5.0); Eosinophil (Absolute #) 0.16 (0-0.5); Hemoglobin 15.9 gm/dl (12.5-18.0); Lymphocyte (Absolute #) 2.22 (1.0-4.6); Lymphocytes % 21.4 % (24.0-44.0); Mean Cell Volume 92.1 fl (78-100); Mean Corpuscular Hemoglobin 29.9 pg (26-32); Mean Corpuscular Hgb Concent. 32.4 g/dl (32-36); Mean Platelet Volume 10.1 fl (7.5-11.0); Monocyte (Absolute #) 1.02 (0.0-1.3); Monocytes % 9.8 % (0.0-12.0); Neutrophil % 67.1 % (36.0-66.0); Platelet Count 177 K/mm3 (150-450); Red Blood Count 5.32 M/mm3 (4.1-5.6); Red Cell Distribution Width 15.8 % (11.5-14.0); White Blood Count 10.4 K/mm3 (4.0-10.5)
[2020-10-25] MEDS ORDERED: Zofran 4 MG/2 ML VIAL ONE (13:40)
[2020-10-25] MEDS ORDERED: MORPHINE SULFATE 2 MG INJ ONE (13:40)
[2020-10-25] MEDS ORDERED: Zofran 4 MG/2 ML VIAL IV ONE (13:42)
[2020-10-25] MEDS ORDERED: MORPHINE SULFATE 2 MG INJ IV ONE (13:42)
[2020-10-25 13:46] LABS: INR 2.06 (0.8-3.0); PROTIME 23.5 SECONDS (8.83-12.87)
[2020-10-25 13:56] LABS: ALBUMIN 4.4 g/dL (3.5-5.0); ALKALINE PHOSPHATASE 84 U/L (38-126); ANION GAP 12.4 MEQ/L (5-15); BLOOD UREA NITROGEN 19 mg/dL (9-20); CHLORIDE 101 mmol/L (98-107); Calcium 9.3 mg/dL (8.4-10.2); Carbon Dioxide 29 mmol/L (22-30); Creatinine 1 0.97 mg/dL (0.66-1.25); EST GLOMERULAR FILTRATION RATE > 60.0 ML/MIN; Glucose 113 mg/dL (74-106); Potassium 4.9 mmol/L (3.5-5.1); SGOT/AST 29 U/L (17-59); SGPT/ALT 17 U/L (0-50); SODIUM 137 mmol/L (137-145); Total Protein 6.9 g/dL (6.3-8.2)
[2020-10-25 15:44] VITALS: BP 133/71
[2020-10-25 16:04] VITALS: PULSE 78; O2SAT 95
[2020-10-25] MEDS ORDERED: NORCO 5/325 MG PO ONE (16:15)
[2020-10-25] MEDS ORDERED: NORCO 5/325 MG ONE (16:16)
--- NOTE | 2020-10-25 17:11 | XRAY ---
Indication: Left-sided pain following fall. Comparison: May 10, 2018. Portable chest less inflated and remains clear. Heart is not enlarged again demonstrating CABG surgery with new left single lead pacemaker. Bony thorax intact again with osteopenia, degenerative changes, and right supraclavicular surgical clips. Impression: Nonacute chest with chronic features.
--- NOTE | 2020-10-25 17:13 | XRAY ---
Indication: Pain following fall. Comparison: September 23, 2009. 2 view left femur again demonstrates osteopenia with new total hip arthroplasty with intact bipolar prosthesis/2 acetabular screws and new lateral hip heterotopic ossifications. Worsening scattered vascular calcifications. No other bony, articular, or soft tissue abnormalities.
--- NOTE | 2020-10-25 17:17 | XRAY ---
Indication: Pain following fall. Comparison: None. AP pelvis and 2 view left hip demonstrates osteopenia, bilateral total hip arthroplasty with intact bipolar prosthesis/acetabular screws, lateral left hip heterotopic ossifications, moderate lower lumbar degenerative spondylosis, and moderate scattered vascular calcifications. No other bony, articular, or soft tissue abnormalities.
--- NOTE | 2020-10-25 17:19 | XRAY ---
Indication: Pain following fall. Comparison: None 3 view left knee demonstrates osteopenia, small suprapatella/tibial tuberosity spurring, moderate vascular calcifications, tiny fabella, and 2 medial vascular clips. No other bony, articular, or soft tissue abnormalities.
--- NOTE | 2020-10-25 17:23 | XRAY ---
Indication: Pain following fall. Multiple contiguous axial images obtained through the head without contrast. Comparison: None Age-appropriate global atrophy and moderate periventricular degenerative micro-ischemia bilaterally. 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 No acute intracranial hemorrhage, abnormal extra-axial fluid collection, or mass effect. Fourth ventricle is midline without hydrocephalus. Bony calvarium intact. Visualized paranasal sinuses and mastoid air cells are clear. Impression: 1. No acute intracranial abnormalities. 2. Atrophy and degenerative micro-ischemia within normal limits for patient's age. 3. Left caudate head remote lacunar infarct. 4. 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 Comment: Preliminary interpretation was made by [facility]. No critical discrepancy.
== END 2020-10-25 16:43 | disposition home or self-care (01) ==
LOC: ED 13:04
DX: T14.8XXA Other injury of unspecified body region, initial encounter (principal); R07.81 Pleurodynia; M79.652 Pain in left thigh; M25.552 Pain in left hip; S06.9X1A Unspecified intracranial injury with loss of consciousness of 30 minutes or less, initial encounter; V86.99XA Unspecified occupant of other special all-terrain or other off-road motor vehicle injured in nontraffic accident, initial encounter; Y93.89 Activity, other specified; Y92.89 Other specified places as the place of occurrence of the external cause; Z79.899 Other long term (current) drug therapy; I10 Essential (primary) hypertension; I25.2 Old myocardial infarction; J44.9 Chronic obstructive pulmonary disease, unspecified; E78.00 Pure hypercholesterolemia, unspecified; Z95.0 Presence of cardiac pacemaker; Z95.1 Presence of aortocoronary bypass graft; Z95.2 Presence of prosthetic heart valve; Z79.01 Long term (current) use of anticoagulants; I73.9 Peripheral vascular disease, unspecified
CPT/HCPCS: 36000; 36415; 70450; 71045; 73502; 73552; 73562; 80053; 85025; 85610; 93005; 93041; 96374; 96375; 99284; J2270; J2405; A9270-GY

== ENCOUNTER 2020-10-30 09:19 | Observation (INO) | payer MEDICARE, OTHER ==
[2020-10-30 10:29] LABS: Absolute Neutrophil Ct (ANC) 4.87 (1.4-6.9); BASOPHIL % 0.3 % (0.0-0.4); Basophil (Absolute #) 0.02 (0-0.4); Eosinophil % 2.5 % (0.00-5.0); Eosinophil (Absolute #) 0.18 (0-0.5); Hematocrit 46.3 % (42-50); Hemoglobin 14.8 gm/dl (12.5-18.0); Lymphocyte (Absolute #) 1.42 (1.0-4.6); Lymphocytes % 19.6 % (24.0-44.0); Mean Cell Volume 91.9 fl (78-100); Mean Corpuscular Hemoglobin 29.4 pg (26-32); Mean Platelet Volume 9.9 fl (7.5-11.0); Monocyte (Absolute #) 0.75 (0.0-1.3); Monocytes % 10.4 % (0.0-12.0); Neutrophil % 67.2 % (36.0-66.0); Platelet Count 214 K/mm3 (150-450); Red Blood Count 5.04 M/mm3 (4.1-5.6); Red Cell Distribution Width 15.6 % (11.5-14.0); White Blood Count 7.2 K/mm3 (4.0-10.5)
[2020-10-30 10:38] LABS: ALBUMIN 3.9 g/dL (3.5-5.0); ALKALINE PHOSPHATASE 79 U/L (38-126); ANION GAP 18.9 MEQ/L (5-15); BLOOD UREA NITROGEN 24 mg/dL (9-20); CHLORIDE 100 mmol/L (98-107); Calcium 8.6 mg/dL (8.4-10.2); Carbon Dioxide 23 mmol/L (22-30); Creatinine 1 0.83 mg/dL (0.66-1.25); EST GLOMERULAR FILTRATION RATE > 60.0 ML/MIN; Glucose 123 mg/dL (74-106); Potassium 4.4 mmol/L (3.5-5.1); SGOT/AST 21 U/L (17-59); SGPT/ALT 14 U/L (0-50); SODIUM 138 mmol/L (137-145); Total Protein 6.4 g/dL (6.3-8.2)
--- NOTE | 2020-10-30 11:58 | XRAY ---
Indication: Left hip/flank pain. Status post fall one week ago. Multiple contiguous axial images obtained through the chest without contrast as ordered. Comparison: January 07, 2015. Lungs demonstrates new mild bilateral dependent atelectasis. No suspicious pulmonary mass/nodule, infiltrate, or effusion. Heart remains borderline enlarged again with CABG surgery and scattered coronary calcifications. New left-sided single lead pacemaker. Aorta demonstrates worsening moderate scattered calcifications without aneurysmal dilatation. Stable small paratracheal and right hilar calcified nodes. No pathologic mediastinal lymphadenopathy. Bony thorax intact again with osteopenia, flowing osteophytes throughout the spine, old left 4 rib fracture, and sternotomy wires. CT abdomen/pelvis reported separately. Impression: 1. New left pacemaker without complications. 2. Again incidental scattered arteriosclerotic disease, chronic bony findings, and old granulomatous disease. 3. Remaining CT chest without contrast exam is negative.
--- NOTE | 2020-10-30 12:09 | XRAY ---
Indication: Left hip/flank pain. Status post fall one week ago. Multiple contiguous axial images obtained through the abdomen and pelvis without contrast as ordered. Comparison: CT abdomen June 04, 2014. CT chest reported separately. Again bilateral total hip arthroplasty. The bipolar prostheses/acetabular screws produces extreme beam artifact limiting images through the pelvis. Noncontrasted stomach and bowel loops nonobstructed. Normal air-filled appendix. Scattered sigmoid diverticulosis. No free fluid/air. Stable hepatic/splenic calcified granulomas. Left mid kidney now demonstrates a 3 cm noncalcified exophytic mass. Lack of IV contrast precludes further characterization. No hydronephrosis or hydroureter. Remaining liver, gallbladder, pancreas, spleen, adrenal glands, kidneys, ureters, and bladder appear unremarkable for noncontrast exam. Progressive worsening moderate scattered arteriosclerotic calcifications. No AAA. Osseous structures intact again with osteopenia, moderate degenerative changes throughout the thoracolumbar spine, inferior L3 Schmorl node, and L5 spondylolysis without spondylolisthesis. Impression: 1. Images through pelvis limited due to beam artifact from bilateral total hip arthroplasty. 2. New 3 cm indeterminant left renal mass. Contrasted exam may yield further information. 3. Incidental sigmoid diverticulosis, scattered arteriosclerotic disease, and chronic bony findings. 4. Remaining CT abdomen/pelvis without contrast exam is negative.
--- NOTE | 2020-10-30 12:28 | ERPHSYRPT ---
- History of Present Illness Source: patient Exam Limitations: no limitations Patient Subjective Stated Complaint: Pt states "I fell out of a side by side a week ago today and came to the ed and had scans but I am still hurting on my left hip and left ribs. I have an appointment with my family doc today but just cannot wait." Triage Nursing Assessment: Pt presented alert and oriented X 3, skin pwd Pt ambulates with a limp. Pt able to speak in clear full sentences. PT CSM X 4. PT has tenderness to left ribs and left hip. Physician History: 89 yo wm fell at home on 10/24/20 and seen in ER 10/25/20 presents w L thorax/L abdominal pain which is worse w coughing. Pt denies further trauma/fever/N/V/cough/dysuria/hematuria/focal weakness but has been constipated due to narcotic use. Occurred: other (10/24/20) Reason for Fall: lost balance Injuries/Pain Location: chest, abdomen Loss of Consciousness: no loss of consciousness Quality: sharpness Severity of Pain-Max: moderate (w movement) Severity of Pain-Current: none Modifying Factors: Improves With: movement Associated Symptoms (Fall): abdominal pain, No shortness of breath Allergies/Adverse Reactions: Shellfish *RETIRED-03/14/13 [Shellfish] Allergy (Mild, Verified 10/25/20 13:26) Hives iodine Allergy (Verified 10/25/20 13:26) shellfish allergy lorazepam [From Ativan] Allergy (Verified 10/25/20 13:26) confusion combative midazolam HCl [From Versed] Allergy (Verified 10/25/20 13:26) confusion combative Home Medications: RX: Carvedilol 25 mg PO BID 09/13/12 [History] RX: Furosemide 20 mg [Lasix 20 mg] 20 mg PO DAILY 09/13/12 [History] RX: Esomeprazole Magnesium [Nexium] 20 mg PO DAILY 03/04/15 [History] RX: Tamsulosin HCl 0.4 mg [Flomax 0.4 MG] 0.4 mg PO DAILY 06/12/15 [History] RX: Aspirin EC 81 mg [Ecotrin 81 mg] 81 mg PO DAILY 08/03/17 [History] RX: Warfarin Sodium 5 mg [Coumadin 5 MG] 5 mg PO UD 08/03/17 [History] RX: Lisinopril 20 mg [Zestril 20 MG] 20 mg PO BID 05/10/18 [History] RX: Escitalopram Oxalate 10 mg PO DAILY 05/11/18 [History] RX: Rosuvastatin Calcium 10 mg PO DAILY 05/11/18 [History] RX: Amlodipine Besylate 1 tab PO DAILY 10/25/20 [History] Sacubitril/Valsartan [Entresto 49 mg-51 mg Tablet] 1 tab PO DAILY 10/25/20 [History] Hx Tetanus, Diphtheria Vaccination/Date Given: No Hx Influenza Vaccination/Date Given: No Hx Pneumococcal Vaccination/Date Given: Yes Immunizations Up to Date: Yes Travel Risk - International Travel Have you traveled outside of the country in past 3 weeks: No - Coronavirus Screening Are you exhibiting any of the following symptoms?: No - Review of Systems Constitutional: No Symptoms Eyes: No Symptoms Ears, Nose, & Throat: No Symptoms Respiratory: No Symptoms Cardiac: No Symptoms Abdominal/Gastrointestinal: Abdominal Pain, Constipation Genitourinary Symptoms: No Symptoms Musculoskeletal: No Symptoms Skin: No Symptoms Neurological: No Symptoms Psychological: No Symptoms Endocrine: No Symptoms Hematologic/Lymphatic: No Symptoms Immunological/Allergic: No Symptoms - Past Medical History Pertinent Past Medical History: Yes Neurological History: TIA ENT History: Cataracts Cardiac History: Angina, Arrhythmia, High Cholesterol, Hypertension, Myocardial Infarction (MD) Respiratory History: COPD Endocrine Medical History: No Pertinent History Musculoskeletal History: Arthritis GI Medical History: No Pertinent History History: No Pertinent History Psycho-Social History: No Pertinent History Male Reproductive Disorders: Prostate Problems Other Medical History: PACEMAKER - Past Surgical History Past Surgical History: Yes Neuro Surgical History: No Pertinent History Cardiac: CABG, Cardiac Catheterization, Other Respiratory: No Pertinent History Gastrointestinal: No Pertinent History Genitourinary: No Pertinent History Musculoskeletal: Joint Replacement Male Surgical History: No Pertinent History Other Surgical History: bilateral hip replacement,bilateral cataract ,hx lung collapse during open heart, carodid endarterectomy, prostate surgery - Social History Smoking Status: Never smoker How long have you smoked: 40yrs Exposure to second hand smoke: No Drug Use: none Patient Lives Alone: No Significant Family History: no pertinent family hx - Nursing Vital Signs Nursing Vital Signs: Initial Vital Signs Temperature 98.2 F 10/30/20 09:37 Pulse Rate 68 10/30/20 09:37 Respiratory Rate 22 10/30/20 09:37 Blood Pressure 120/78 10/30/20 09:37 O2 Sat by Pulse Oximetry 92 L 10/30/20 09:37 Pain Scale Pain Intensity 4 - Kathy Coma Score Best Eye Response (Barnum): (4) open spontaneously Best Verbal Response (Kathy): (5) oriented Best Motor Response (Kathy): (6) obeys commands Kathy Total: 15 - Physical Exam General Appearance: no apparent distress Head Injury: no evidence of injury Eye Exam: PERRL/EOMI, eyes nml inspection ENT Exam: airway nml, No clear fluid (ears), No clear fluid (nose), No hemotympanum Neck Exam: supple, trachea midline, full range of motion, No mass, No Brudzinski, No Kernig's Respiratory/Chest Exam: rales (Faint bases B), other (L thorax mildly ttp) Gastrointestinal Exam: soft, normal bowel sounds, tenderness (L flank mildly ttp) Rectal Exam: No decreased tone Back Exam: normal inspection, normal range of motion, No vertebral tenderness Extremity Exam: normal inspection, normal range of motion, pelvis stable, No deformities Peripheral Pulses: carotid (R): 2+, carotid (L): 2+ Neurologic Exam: alert, oriented x 3, cooperative, parquet floor layer's helper II-XII nml as tested, normal mood/affect, sensation nml, No motor deficits, No sensory deficit Skin Exam: normal color, warm, dry, other (Pt has sacral-coccygeal erythema which could be classified early stage 1 decub/No breakdown) SpO2 Interpretation: normal SpO2: 94 O2 Delivery: Room Air - Course Nursing assessment & vital signs reviewed: Yes EKG Interpreted by Me: RATE (NSR/R71/PVC's/Normal QT-QTc/Qwave 3-AVF/Non-specific T waves) - Radiology Exams Pelvis X-ray Interpretation: Discussed w/ radiologist (Nothing acute) - CT Exams Abdomen/Pelvis CT Interpretation: Discussed w/radiologist (3cm L renal mass) Chest CT Interpretation: Discussed w/radiologist (Pacer/Nothing acute) Ordered Tests: Active Orders 24 hr Category Date Time Status EKG-ER Only STAT Care 10/30/20 09:55 Completed IV Insertion STAT Care 10/30/20 14:30 Completed Heart-Healthy Diet Diet 10/30/20 Dinner Active ABDOMEN AND PELVIS W/0 CONTRAS [CT] Stat Exams 10/30/20 11:06 Completed CHEST WITHOUT CONTRAST [CT] Stat Exams 10/30/20 11:07 Completed PELVIS (1 OR 2 VIEWS) Stat Exams 10/30/20 13:12 Completed CBC W DIFF AM.LAB Lab 10/31/20 04:00 Ordered CBC W DIFF Stat Lab 10/30/20 10:10 Completed CMP AM.LAB Lab 10/31/20 04:00 Ordered CMP Stat Lab 10/30/20 10:10 Completed TROPONIN Q3H Lab 10/30/20 10:10 Completed UA W/RFX UR CULTURE Stat Lab 10/30/20 12:58 Completed Transfer Order Routine Transfer 10/30/20 Completed Medication Summary Generic Name Dose Route Start Last Admin Trade Name Freq PRN Reason Stop Dose Admin Hydromorphone HCl 0.5 mg 10/30/20 14:22 10/30/20 17:31 Hydromorphone 1 Mg/Ml Injection IV 11/04/20 14:21 0.5 mg Q4H PRN PRN Administration PAIN Sodium Chloride 1,000 mls @ 100 mls/hr 10/30/20 14:30 10/30/20 17:30 Sodium Chloride 0.9% 1000 Ml IV 11/29/20 14:29 100 mls/hr .Q10H PABLO Administration Ondansetron HCl 4 mg 10/30/20 14:22 Zofran 4 Mg/2 Ml Vial IV 11/29/20 14:21 Q6H PRN PRN NAUSEA/VOMITING Pantoprazole Sodium 40 mg 10/30/20 17:00 10/30/20 17:35 Protonix 40 Mg Iv IV 11/29/20 16:59 40 mg Q24H10 PABLO Administration Lab/Rad Data: Laboratory Result Diagrams 10/30/20 10:10 10/30/20 10:10 Laboratory Results 10/30/20 10/30/20 10/30/20 Range/Units 12:58 10:10 10:10 WBC (4.0-10.5) K/mm3 RBC (4.1-5.6) M/mm3 Hgb (12.5-18.0) gm/dl Hct (42-50) % MCV (78-100) fl MCH (26-32) pg MCHC (32-36) g/dl RDW (11.5-14.0) % Plt Count (150-450) K/mm3 MPV (7.5-11.0) fl Gran % (36.0-66.0) % Eos # (Auto) (0-0.5) Absolute Lymphs (auto) (1.0-4.6) Absolute Monos (auto) (0.0-1.3) Lymphocytes % (24.0-44.0) % Monocytes % (0.0-12.0) % Eosinophils % (0.00-5.0) % Basophils % (0.0-0.4) % Absolute Granulocytes (1.4-6.9) Basophils # (0-0.4) Sodium 138 (137-145) mmol/L Potassium 4.4 (3.5-5.1) mmol/L Chloride 100 (98-107) mmol/L Carbon Dioxide 23 (22-30) mmol/L Anion Gap 18.9 H (5-15) MEQ/L BUN 24 H (9-20) mg/dL Creatinine 0.83 (0.66-1.25) mg/dL Estimated GFR > 60.0 ML/MIN Glucose 123 H (74-106) mg/dL Calcium 8.6 (8.4-10.2) mg/dL Total Bilirubin 1.60 H (0.2-1.3) mg/dL AST 21 (17-59) U/L ALT 14 (0-50) U/L Alkaline Phosphatase 79 (38-126) U/L Troponin I < 0.012 (0.000-0.034) ng/mL Serum Total Protein 6.4 (6.3-8.2) g/dL Albumin 3.9 (3.5-5.0) g/dL Urine Color YELLOW (YELLOW) Urine Appearance CLEAR (CLEAR) Urine pH 5.0 (5-6) Ur Specific [place] 1.024 (1.005-1.025) Urine Protein 30 (Negative) Urine Ketones TRACE (NEGATIVE) Urine Blood NEGATIVE (0-5) Jose/ul Urine Nitrite NEGATIVE (NEGATIVE) Urine Bilirubin NEGATIVE (NEGATIVE) Urine Urobilinogen 4 (0-1) mg/dL Ur Leukocyte Esterase NEGATIVE (NEGATIVE) Urine WBC (Auto) 3-5 (0-5) /HPF Urine RBC (Auto) 0-2 (0-2) /HPF U Hyaline Cast (Auto) 0-2 (0-2) /LPF U Epithel Cells (Auto) NONE (FEW) /HPF Urine Bacteria (Auto) NONE (NEGATIVE) /HPF Urine Mucus (Auto) SLIGHT (NEGATIVE) /HPF Urine Culture Reflexed NO (NO) Urine Glucose NEGATIVE (NEGATIVE) mg/dL 10/30/20 Range/Units 10:10 WBC 7.2 (4.0-10.5) K/mm3 RBC 5.04 (4.1-5.6) M/mm3 Hgb 14.8 (12.5-18.0) gm/dl Hct 46.3 (42-50) % MCV 91.9 (78-100) fl MCH 29.4 (26-32) pg MCHC 32.0 (32-36) g/dl RDW 15.6 H (11.5-14.0) % Plt Count 214 (150-450) K/mm3 MPV 9.9 (7.5-11.0) fl Gran % 67.2 H (36.0-66.0) % Eos # (Auto) 0.18 (0-0.5) Absolute Lymphs (auto) 1.42 (1.0-4.6) Absolute Monos (auto) 0.75 (0.0-1.3) Lymphocytes % 19.6 L (24.0-44.0) % Monocytes % 10.4 (0.0-12.0) % Eosinophils % 2.5 (0.00-5.0) % Basophils % 0.3 (0.0-0.4) % Absolute Granulocytes 4.87 (1.4-6.9) Basophils # 0.02 (0-0.4) Sodium (137-145) mmol/L Potassium (3.5-5.1) mmol/L Chloride (98-107) mmol/L Carbon Dioxide (22-30) mmol/L Anion Gap (5-15) MEQ/L BUN (9-20) mg/dL Creatinine (0.66-1.25) mg/dL Estimated GFR ML/MIN Glucose (74-106) mg/dL Calcium (8.4-10.2) mg/dL Total Bilirubin (0.2-1.3) mg/dL AST (17-59) U/L ALT (0-50) U/L Alkaline Phosphatase (38-126) U/L Troponin I (0.000-0.034) ng/mL Serum Total Protein (6.3-8.2) g/dL Albumin (3.5-5.0) g/dL Urine Color (YELLOW) Urine Appearance (CLEAR) Urine pH (5-6) Ur Specific [place] (1.005-1.025) Urine Protein (Negative) Urine Ketones (NEGATIVE) Urine Blood (0-5) Jose/ul Urine Nitrite (NEGATIVE) Urine Bilirubin (NEGATIVE) Urine Urobilinogen (0-1) mg/dL Ur Leukocyte Esterase (NEGATIVE) Urine WBC (Auto) (0-5) /HPF Urine RBC (Auto) (0-2) /HPF U Hyaline Cast (Auto) (0-2) /LPF U Epithel Cells (Auto) (FEW) /HPF Urine Bacteria (Auto) (NEGATIVE) /HPF Urine Mucus (Auto) (NEGATIVE) /HPF Urine Culture Reflexed (NO) Urine Glucose (NEGATIVE) mg/dL - Progress Progress Note: 10/30/20 18:10 Spoke w pt's son, wants home health-hospital bed or short stay for pain control/rehab. Admit per Dr. Swartz. Discussed with : Abrahan Will see patient in: hospital (observation) Counseled pt/family regarding: lab results, diagnosis, rad results - Departure Departure Disposition: Observation Clinical Impression: Fall with injury, Failure to thrive in adult Condition: Stable Critical Care Time: No
--- NOTE | 2020-10-30 13:28 | XRAY ---
Indication: Left hip pain following fall one week ago. Negative same day CT abdomen/pelvis. Comparison: October 25, 2020 AP pelvis unchanged again demonstrating osteopenia, bilateral total hip arthroplasty with intact bipolar prosthesis/acetabular screws, lower lumbar degenerative spondylosis, and scattered vascular calcifications. No new/acute findings.
[2020-10-30 13:32] LABS: Appearance CLEAR (CLEAR); Bilirubin NEGATIVE (NEGATIVE); Blood NEGATIVE Ery/ul (0-5); Glucose NEGATIVE (NEGATIVE); Hyaline Casts 0-2 /LPF (0-2); Ketones TRACE (NEGATIVE); Leukocyte Esterase NEGATIVE (NEGATIVE); Mucus SLIGHT /HPF (NEGATIVE); Nitrite NEGATIVE (NEGATIVE); Protein,Urine Dip 30 (Negative); RBC 0-2 /HPF (0-2); Specific Gravity 1.024 (1.005-1.025); Urobilinogen 4 mg/dL (0-1)
[2020-10-30] MEDS ORDERED: Zofran 4 MG/2 ML VIAL IV PRN (14:22)
[2020-10-30] MEDS: Sodium Chloride 0.9% 1000 ML 1,000 ML IV SCH (17:30)
[2020-10-30] MEDS: Hydromorphone 1 mg/ml Injection IV PRN ×2 (17:31→22:39)
[2020-10-30] MEDS: PROTONIX 40 MG IV IV SCH (17:35)
[2020-10-30] MEDS ORDERED: DULCOLAX 5 MG PO PRN (18:16)
[2020-10-30] MEDS ORDERED: Zestril 20 MG PO ONE (22:00)
[2020-10-30] MEDS ORDERED: COREG 12.5 MG PO ONE (22:00)
[2020-10-31] MEDS: Sodium Chloride 0.9% 1000 ML 1,000 ML IV SCH (01:09)
[2020-10-31 05:32] LABS: Absolute Neutrophil Ct (ANC) 5.74 (1.4-6.9); BASOPHIL % 0.1 % (0.0-0.4); Basophil (Absolute #) 0.01 (0-0.4); Eosinophil % 1.8 % (0.00-5.0); Eosinophil (Absolute #) 0.15 (0-0.5); Hematocrit 45.6 % (42-50); Hemoglobin 14.4 gm/dl (12.5-18.0); Lymphocyte (Absolute #) 1.54 (1.0-4.6); Lymphocytes % 18.2 % (24.0-44.0); Mean Cell Volume 93.1 fl (78-100); Mean Corpuscular Hemoglobin 29.4 pg (26-32); Mean Corpuscular Hgb Concent. 31.6 g/dl (32-36); Mean Platelet Volume 9.8 fl (7.5-11.0); Monocyte (Absolute #) 1.03 (0.0-1.3); Monocytes % 12.2 % (0.0-12.0); Neutrophil % 67.7 % (36.0-66.0); Platelet Count 205 K/mm3 (150-450); Red Cell Distribution Width 15.5 % (11.5-14.0); White Blood Count 8.5 K/mm3 (4.0-10.5)
[2020-10-31 06:03] LABS: ALBUMIN 3.5 g/dL (3.5-5.0); ALKALINE PHOSPHATASE 75 U/L (38-126); ANION GAP 9.2 MEQ/L (5-15); BLOOD UREA NITROGEN 23 mg/dL (9-20); CHLORIDE 101 mmol/L (98-107); Calcium 8.7 mg/dL (8.4-10.2); Carbon Dioxide 31 mmol/L (22-30); Creatinine 1 0.89 mg/dL (0.66-1.25); EST GLOMERULAR FILTRATION RATE > 60.0 ML/MIN; Glucose 113 mg/dL (74-106); Potassium 3.7 mmol/L (3.5-5.1); SGOT/AST 21 U/L (17-59); SGPT/ALT 13 U/L (0-50); SODIUM 137 mmol/L (137-145)
[2020-10-31 07:05] LABS: INR 2.54 (0.8-3.0)
[2020-10-31] MEDS ORDERED: LACTULOSE 20 GM/30ML UD CUP PO ONE (08:06)
--- NOTE | 2020-10-31 08:14 | PCM.HP ---
History of Present Illness - Chief Complaint Chief Complaint: L THORACIC CONTUSION History of Present Illness: is a 89 year old male who fell out of a side by side at his home 1 week prior to arrival, he has been struggling with severe lower back and left flank pain since the fall, he has a sharp intermittent pain brought on by movement, cough, deep inspiration and the pain is sharp and stabbing when it occurs and he is having difficulty getting up to stand. - Review of Systems Constitutional: No Fever, No Chills Respiratory: No Cough, No Short Of Breath Cardiac: No Chest Pain, No Edema, No Syncope Abdominal/Gastrointestinal: Constipation Musculoskeletal: Back Pain Skin: No Rash Medications & Allergies Home Medications: Home Medication List Carvedilol 25 mg PO BID 09/13/12 [History Confirmed 10/30/20] Furosemide 20 mg [Lasix 20 mg] 20 mg PO DAILY 09/13/12 [History Confirmed 10/30/20] Esomeprazole Magnesium [Nexium] 20 mg PO DAILY 03/04/15 [History Confirmed 10/30/20] Tamsulosin HCl 0.4 mg [Flomax 0.4 MG] 0.4 mg PO DAILY 06/12/15 [History Confirmed 10/30/20] Aspirin EC 81 mg [Ecotrin 81 mg] 81 mg PO DAILY 08/03/17 [History Confirmed 10/30/20] Warfarin Sodium 5 mg [Coumadin 5 MG] 5 mg PO UD 08/03/17 [History Confirmed 10/30/20] Lisinopril 20 mg [Zestril 20 MG] 20 mg PO BID 05/10/18 [History Confirmed 10/30/20] Escitalopram Oxalate 10 mg PO DAILY 05/11/18 [History Confirmed 10/30/20] Rosuvastatin Calcium 10 mg PO DAILY 05/11/18 [History Confirmed 10/30/20] Amlodipine Besylate 1 tab PO DAILY 10/25/20 [History Confirmed 10/30/20] Hydrocodone/APAP 5/325 [Scott 5/325 mg] 1 each PO Q12H PRN PRN #5 tablet MDD 2 10/25/20 [Rx Confirmed 10/30/20] Sacubitril/Valsartan [Entresto 49 mg-51 mg Tablet] 1 tab PO DAILY 10/25/20 [History Confirmed 10/30/20] Allergies/Adverse Reactions: Allergies Allergy/AdvReac Type Severity Reaction Status Date / Time Shellfish *RETIRED-03/14/13 Allergy Mild Hives Verified 10/25/20 13:26 [Shellfish] iodine Allergy shellfish Verified 10/25/20 13:26 allergy lorazepam [From Ativan] Allergy confusion Verified 10/25/20 13:26 combative midazolam HCl [From Versed] Allergy confusion Verified 10/25/20 13:26 combative - Past Medical History Past Medical History: Yes Neurological History: TIA ENT History: Cataracts Cardiac History: Angina, Arrhythmia, High Cholesterol, Hypertension, Myocardial Infarction (AR) Respiratory History: COPD Endocrine Medical History: No Pertinent History Musculoskelatal History: Arthritis GI Medical History: No Pertinent History History: No Pertinent History Pyscho-Social History: No Pertinent History Male Reproductive Disorders: Prostate Problems Comment: PACEMAKER - Past Surgical History Past Surgical History: Yes Neuro Surgical History: No Pertinent History Cardiac History: CABG, Cardiac Catheterization, Other Respiratory Surgery: No Pertinent History GI Surgical History: No Pertinent History Genitourinary Surgical Hx: No Pertinent History Musculskeletal Surgical Hx: Joint Replacement Male Surgical History: No Pertinent History Other Surgical History: bilateral hip replacement,bilateral cataract ,hx lung collapse during open heart, carodid endarterectomy, prostate surgery - Social History Smoking Status: Never smoker How long have you smoked: 40yrs Exposure to second hand smoke: No Alcohol: None Drug Use: none Significant Family History: no pertinent family hx - Physical Exam Vital Signs: Vital Signs - 24 hr Temp Pulse Resp BP Pulse Ox 10/31/20 07:38 98.5 F 64 20 102/59 96 10/31/20 05:24 95 10/31/20 04:00 97.6 F 76 24 87/52 95 10/31/20 00:00 98.2 F 75 22 107/57 94 L 10/30/20 19:58 97.7 F 70 24 101/50 91 L 10/30/20 18:16 94 L 10/30/20 17:26 92 L 10/30/20 16:38 97.5 F 86 18 103/59 91 L 10/30/20 15:58 97.5 F 86 18 103/59 91 L 10/30/20 15:40 72 16 118/82 98 10/30/20 14:08 69 18 156/75 96 10/30/20 13:23 98.2 F 70 20 108/60 97 10/30/20 12:07 98.2 F 73 20 111/66 94 L 10/30/20 10:31 98.2 F 72 20 121/74 98 10/30/20 09:37 98.2 F 68 22 120/78 92 L General Appearance: no apparent distress Neurologic Exam: alert, cooperative Respiratory Exam: normal breath sounds, lungs clear, No respiratory distress Cardiovascular Exam: regular rate/rhythm, normal heart sounds, normal peripheral pulses Gastrointestinal/Abdomen Exam: soft, normal bowel sounds, No tenderness, No mass Back Exam: decreased range of motion, muscle spasm, No vertebral tenderness Extremity Exam: other (no shortening of left hip, no pain with internal/external rotation) Results - Labs Lab/Micro Results: Lab Results-Last 24 Hours 10/30/20 10/30/20 10/30/20 Range/Units 10:10 10:10 10:10 WBC 7.2 (4.0-10.5) K/mm3 RBC 5.04 (4.1-5.6) M/mm3 Hgb 14.8 (12.5-18.0) gm/dl Hct 46.3 (42-50) % MCV 91.9 (78-100) fl MCH 29.4 (26-32) pg MCHC 32.0 (32-36) g/dl RDW 15.6 H (11.5-14.0) % Plt Count 214 (150-450) K/mm3 MPV 9.9 (7.5-11.0) fl Gran % 67.2 H (36.0-66.0) % Eos # (Auto) 0.18 (0-0.5) Absolute Lymphs (auto) 1.42 (1.0-4.6) Absolute Monos (auto) 0.75 (0.0-1.3) Lymphocytes % 19.6 L (24.0-44.0) % Monocytes % 10.4 (0.0-12.0) % Eosinophils % 2.5 (0.00-5.0) % Basophils % 0.3 (0.0-0.4) % Absolute Granulocytes 4.87 (1.4-6.9) Basophils # 0.02 (0-0.4) PT (8.83-12.87) SECONDS INR (0.8-3.0) Sodium 138 (137-145) mmol/L Potassium 4.4 (3.5-5.1) mmol/L Chloride 100 (98-107) mmol/L Carbon Dioxide 23 (22-30) mmol/L Anion Gap 18.9 H (5-15) MEQ/L BUN 24 H (9-20) mg/dL Creatinine 0.83 (0.66-1.25) mg/dL Estimated GFR > 60.0 ML/MIN Glucose 123 H (74-106) mg/dL Calcium 8.6 (8.4-10.2) mg/dL Total Bilirubin 1.60 H (0.2-1.3) mg/dL AST 21 (17-59) U/L ALT 14 (0-50) U/L Alkaline Phosphatase 79 (38-126) U/L Troponin I < 0.012 (0.000-0.034) ng/mL Serum Total Protein 6.4 (6.3-8.2) g/dL Albumin 3.9 (3.5-5.0) g/dL Urine Color (YELLOW) Urine Appearance (CLEAR) Urine pH (5-6) Ur Specific [place] (1.005-1.025) Urine Protein (Negative) Urine Ketones (NEGATIVE) Urine Blood (0-5) Jose/ul Urine Nitrite (NEGATIVE) Urine Bilirubin (NEGATIVE) Urine Urobilinogen (0-1) mg/dL Ur Leukocyte Esterase (NEGATIVE) Urine WBC (Auto) (0-5) /HPF Urine RBC (Auto) (0-2) /HPF U Hyaline Cast (Auto) (0-2) /LPF U Epithel Cells (Auto) (FEW) /HPF Urine Bacteria (Auto) (NEGATIVE) /HPF Urine Mucus (Auto) (NEGATIVE) /HPF Urine Culture Reflexed (NO) Urine Glucose (NEGATIVE) mg/dL 10/30/20 10/31/20 10/31/20 Range/Units 12:58 04:40 04:40 WBC 8.5 (4.0-10.5) K/mm3 RBC 4.90 (4.1-5.6) M/mm3 Hgb 14.4 (12.5-18.0) gm/dl Hct 45.6 (42-50) % MCV 93.1 (78-100) fl MCH 29.4 (26-32) pg MCHC 31.6 L (32-36) g/dl RDW 15.5 H (11.5-14.0) % Plt Count 205 (150-450) K/mm3 MPV 9.8 (7.5-11.0) fl Gran % 67.7 H (36.0-66.0) % Eos # (Auto) 0.15 (0-0.5) Absolute Lymphs (auto) 1.54 (1.0-4.6) Absolute Monos (auto) 1.03 (0.0-1.3) Lymphocytes % 18.2 L (24.0-44.0) % Monocytes % 12.2 H (0.0-12.0) % Eosinophils % 1.8 (0.00-5.0) % Basophils % 0.1 (0.0-0.4) % Absolute Granulocytes 5.74 (1.4-6.9) Basophils # 0.01 (0-0.4) PT (8.83-12.87) SECONDS INR (0.8-3.0) Sodium 137 (137-145) mmol/L Potassium 3.7 (3.5-5.1) mmol/L Chloride 101 (98-107) mmol/L Carbon Dioxide 31 H (22-30) mmol/L Anion Gap 9.2 (5-15) MEQ/L BUN 23 H (9-20) mg/dL Creatinine 0.89 (0.66-1.25) mg/dL Estimated GFR > 60.0 ML/MIN Glucose 113 H (74-106) mg/dL Calcium 8.7 (8.4-10.2) mg/dL Total Bilirubin 1.30 (0.2-1.3) mg/dL AST 21 (17-59) U/L ALT 13 (0-50) U/L Alkaline Phosphatase 75 (38-126) U/L Troponin I (0.000-0.034) ng/mL Serum Total Protein 6.0 L (6.3-8.2) g/dL Albumin 3.5 (3.5-5.0) g/dL Urine Color YELLOW (YELLOW) Urine Appearance CLEAR (CLEAR) Urine pH 5.0 (5-6) Ur Specific [place] 1.024 (1.005-1.025) Urine Protein 30 (Negative) Urine Ketones TRACE (NEGATIVE) Urine Blood NEGATIVE (0-5) Jose/ul Urine Nitrite NEGATIVE (NEGATIVE) Urine Bilirubin NEGATIVE (NEGATIVE) Urine Urobilinogen 4 (0-1) mg/dL Ur Leukocyte Esterase NEGATIVE (NEGATIVE) Urine WBC (Auto) 3-5 (0-5) /HPF Urine RBC (Auto) 0-2 (0-2) /HPF U Hyaline Cast (Auto) 0-2 (0-2) /LPF U Epithel Cells (Auto) NONE (FEW) /HPF Urine Bacteria (Auto) NONE (NEGATIVE) /HPF Urine Mucus (Auto) SLIGHT (NEGATIVE) /HPF Urine Culture Reflexed NO (NO) Urine Glucose NEGATIVE (NEGATIVE) mg/dL 10/31/20 Range/Units 04:40 WBC (4.0-10.5) K/mm3 RBC (4.1-5.6) M/mm3 Hgb (12.5-18.0) gm/dl Hct (42-50) % MCV (78-100) fl MCH (26-32) pg MCHC (32-36) g/dl RDW (11.5-14.0) % Plt Count (150-450) K/mm3 MPV (7.5-11.0) fl Gran % (36.0-66.0) % Eos # (Auto) (0-0.5) Absolute Lymphs (auto) (1.0-4.6) Absolute Monos (auto) (0.0-1.3) Lymphocytes % (24.0-44.0) % Monocytes % (0.0-12.0) % Eosinophils % (0.00-5.0) % Basophils % (0.0-0.4) % Absolute Granulocytes (1.4-6.9) Basophils # (0-0.4) PT 29.0 H (8.83-12.87) SECONDS INR 2.54 (0.8-3.0) Sodium (137-145) mmol/L Potassium (3.5-5.1) mmol/L Chloride (98-107) mmol/L Carbon Dioxide (22-30) mmol/L Anion Gap (5-15) MEQ/L BUN (9-20) mg/dL Creatinine (0.66-1.25) mg/dL Estimated GFR ML/MIN Glucose (74-106) mg/dL Calcium (8.4-10.2) mg/dL Total Bilirubin (0.2-1.3) mg/dL AST (17-59) U/L ALT (0-50) U/L Alkaline Phosphatase (38-126) U/L Troponin I (0.000-0.034) ng/mL Serum Total Protein (6.3-8.2) g/dL Albumin (3.5-5.0) g/dL Urine Color (YELLOW) Urine Appearance (CLEAR) Urine pH (5-6) Ur Specific [place] (1.005-1.025) Urine Protein (Negative) Urine Ketones (NEGATIVE) Urine Blood (0-5) Jose/ul Urine Nitrite (NEGATIVE) Urine Bilirubin (NEGATIVE) Urine Urobilinogen (0-1) mg/dL Ur Leukocyte Esterase (NEGATIVE) Urine WBC (Auto) (0-5) /HPF Urine RBC (Auto) (0-2) /HPF U Hyaline Cast (Auto) (0-2) /LPF U Epithel Cells (Auto) (FEW) /HPF Urine Bacteria (Auto) (NEGATIVE) /HPF Urine Mucus (Auto) (NEGATIVE) /HPF Urine Culture Reflexed (NO) Urine Glucose (NEGATIVE) mg/dL - Radiology Impressions Radiology Exams & Impressions: Radiology Procedures Category Date Time Status ABDOMEN AND PELVIS W/0 CONTRAS [CT] Stat Exams 10/30/20 11:06 Completed CHEST WITHOUT CONTRAST [CT] Stat Exams 10/30/20 11:07 Completed PELVIS (1 OR 2 VIEWS) Stat Exams 10/30/20 13:12 Completed - Other Procedures and Tests Respiratory Therapy 10/30/20 17:26 Oxygen NASAL CANNULA 2 lpm Assessment/Plan (1) Intractable low back pain Current Visit: Yes Status: Acute Assessment & Plan: use norco prn for pain, tizanidine for spasm and PT consult. patient is unable to care for himself in his home at this time and is a significant fall risk. Code(s): M54.5 - LOW BACK PAIN (2) Constipation Current Visit: Yes Status: Acute Assessment & Plan: lactulose ordered Code(s): K59.00 - CONSTIPATION, UNSPECIFIED (3) Fall with injury Current Visit: Yes Status: Acute Code(s): W19.XXXA - UNSPECIFIED FALL, INITIAL ENCOUNTER (4) Afib Current Visit: No Status: Chronic Qualifiers: Assessment & Plan: INR therapeutic, continue current coumadin dose Code(s): I48.91 - UNSPECIFIED ATRIAL FIBRILLATION (5) COPD (chronic obstructive pulmonary disease) Current Visit: No Status: Chronic Qualifiers: (6) HTN (hypertension) Current Visit: No Status: Chronic Qualifiers: Code(s): I10 - ESSENTIAL (PRIMARY) HYPERTENSION
[2020-10-31] MEDS: PROTONIX 40 MG IV IV SCH (09:32)
[2020-10-31] MEDS: LASIX 20 MG PO SCH (09:35)
[2020-10-31] MEDS: Zestril 20 MG PO SCH ×2 (09:36→22:39)
[2020-10-31] MEDS: Flomax 0.4 MG PO SCH (09:37)
[2020-10-31] MEDS: ECOTRIN 81 MG PO SCH (09:39)
[2020-10-31] MEDS: Colace 100 MG PO SCH ×2 (09:39→22:39)
[2020-10-31] MEDS: Lexapro 10 MG PO SCH (09:49)
[2020-10-31] MEDS: COREG 12.5 MG PO SCH ×2 (09:53→21:31)
[2020-10-31] MEDS: Protonix 40MG Tablet PO SCH (09:55)
[2020-10-31] MEDS ORDERED: NON-FORMULARY ITEM (Esomeprazole Magnesium [Nexium] 20 MG) PO SCH (10:00)
[2020-10-31] MEDS ORDERED: NON-FORMULARY ITEM (Carvedilol [Carvedilol] 25 MG) PO SCH (10:00)
[2020-10-31] MEDS ORDERED: FLUZONE HIGH-DOSE QUAD 2020-21 IM ONE (10:00)
[2020-10-31] MEDS: ENTRESTO 49 MG-51 MG TABLET PO SCH (10:07)
[2020-10-31] MEDS: NORVASC 5 MG PO SCH (10:07)
[2020-10-31] MEDS: Zanaflex 4 MG PO PRN (15:04)
[2020-10-31] MEDS: Coumadin 5 MG PO SCH (18:01)
[2020-10-31] MEDS: ZOCOR 20MG PO SCH (21:30)
[2020-11-01] MEDS: Norco 10/325 MG Tablet PO PRN ×2 (06:07→20:07)
[2020-11-01 06:49] LABS: INR 2.56 (0.8-3.0); PROTIME 29.2 SECONDS (8.83-12.87)
[2020-11-01 07:01] LABS: ANION GAP 10.1 MEQ/L (5-15); BLOOD UREA NITROGEN 27 mg/dL (9-20); CHLORIDE 106 mmol/L (98-107); Calcium 8.6 mg/dL (8.4-10.2); Carbon Dioxide 26 mmol/L (22-30); EST GLOMERULAR FILTRATION RATE > 60.0 ML/MIN; Glucose 127 mg/dL (74-106); Potassium 3.5 mmol/L (3.5-5.1); SODIUM 138 mmol/L (137-145)
[2020-11-01 07:11] LABS: Absolute Neutrophil Ct (ANC) 4.85 (1.4-6.9); BASOPHIL % 0.4 % (0.0-0.4); Basophil (Absolute #) 0.03 (0-0.4); Eosinophil % 2.5 % (0.00-5.0); Eosinophil (Absolute #) 0.18 (0-0.5); Hematocrit 42.6 % (42-50); Hemoglobin 13.7 gm/dl (12.5-18.0); Lymphocyte (Absolute #) 1.47 (1.0-4.6); Lymphocytes % 20.1 % (24.0-44.0); Mean Cell Volume 92.8 fl (78-100); Mean Corpuscular Hemoglobin 29.8 pg (26-32); Mean Corpuscular Hgb Concent. 32.2 g/dl (32-36); Mean Platelet Volume 10.3 fl (7.5-11.0); Monocyte (Absolute #) 0.79 (0.0-1.3); Monocytes % 10.8 % (0.0-12.0); Neutrophil % 66.2 % (36.0-66.0); Platelet Count 211 K/mm3 (150-450); Red Blood Count 4.59 M/mm3 (4.1-5.6); Red Cell Distribution Width 15.5 % (11.5-14.0); White Blood Count 7.3 K/mm3 (4.0-10.5)
[2020-11-01] MEDS: Flomax 0.4 MG PO SCH (09:31)
[2020-11-01] MEDS: NORVASC 5 MG PO SCH (09:31)
[2020-11-01] MEDS: Lexapro 10 MG PO SCH (09:31)
[2020-11-01] MEDS: COREG 12.5 MG PO SCH ×2 (09:31→20:08)
[2020-11-01] MEDS: LASIX 20 MG PO SCH (09:31)
[2020-11-01] MEDS: ENTRESTO 49 MG-51 MG TABLET PO SCH (09:31)
[2020-11-01] MEDS: ECOTRIN 81 MG PO SCH (09:31)
[2020-11-01] MEDS: Zestril 20 MG PO SCH ×2 (09:31→20:08)
[2020-11-01] MEDS: Colace 100 MG PO SCH ×2 (09:32→20:08)
[2020-11-01] MEDS: Protonix 40MG Tablet PO SCH (09:32)
--- NOTE | 2020-11-01 09:57 | PCM.NOTE ---
Date and Time: 11/01/20951 Subjective Assessment: Pt notes still unable to fully care for himself but pain is getting better slightly each day. Pt. notes ambulation and getting up are still difficult for him living by himself, notes he may be able to stay for a time with family when he is discharged. - Review of Systems Constitutional: No Fever, No Chills Eyes: No Symptoms Ears, Nose, & Throat: No Symptoms Respiratory: No Cough, No Short Of Breath Cardiac: Chest Pain (pain in chest wall and laterally on the left from fall//injury) Abdominal/Gastrointestinal: No Abdominal Pain, No Nausea, No Vomiting, No Diarrhea Genitourinary Symptoms: No Dysuria Musculoskeletal: Arthralgias, Back Pain Skin: No Rash Neurological: No Dizziness, No Focal Weakness, No Sensory Changes Psychological: No Symptoms Endocrine: No Symptoms Hematologic/Lymphatic: No Symptoms Immunological/Allergic: No Symptoms Objective Exam General Appearance: no apparent distress Neurologic Exam: alert, cooperative Skin Exam: warm, dry Eye Exam: EOMI Ears, Nose, Throat Exam: normal ENT inspection Neck Exam: normal inspection, non-tender, supple Respiratory Exam: normal breath sounds, chest tenderness (lateral left side), lungs clear Cardiovascular Exam: regular rate/rhythm, normal heart sounds Gastrointestinal/Abdomen Exam: soft, normal bowel sounds (mild left upper later ally tender from fall/contusion), tenderness Extremity Exam: normal inspection OBJECTIVE DATA Vital Signs: Vital Signs - 24 hr Temp Pulse Resp BP Pulse Ox 11/01/20 07:25 98.5 F 92 H 18 97/53 94 L 11/01/20 04:00 97.0 F 79 20 104/67 95 11/01/20 00:00 97.4 F 61 24 94/54 96 10/31/20 20:00 97 F 61 24 86/52 93 L 10/31/20 16:00 97.8 F 68 16 93/62 90 L 10/31/20 11:53 97.9 F 66 18 101/55 93 L Oxygen-Last 24 hours Oxygen Flowrate (L/min)-RT 2 Pain Assessment - Last Documented Pain Intensity 3 Pain Scale Used 0-10 Pain Scale Intake and Output: Intake & Output 10/29/20 10/30/20 10/31/20 11/01/20 11:59 11:59 11:59 11:59 Intake Total 2173 1050 Output Total 492 370 Balance 4088 360 Weight 102.8 kg 103 kg Lab Results: Lab Results-Last 24 Hours 10/31/20 11/01/20 11/01/20 Range/Units 12:33 05:00 05:00 WBC 7.3 (4.0-10.5) K/mm3 RBC 4.59 (4.1-5.6) M/mm3 Hgb 13.7 (12.5-18.0) gm/dl Hct 42.6 (42-50) % MCV 92.8 (78-100) fl MCH 29.8 (26-32) pg MCHC 32.2 (32-36) g/dl RDW 15.5 H (11.5-14.0) % Plt Count 211 (150-450) K/mm3 MPV 10.3 (7.5-11.0) fl Gran % 66.2 H (36.0-66.0) % Eos # (Auto) 0.18 (0-0.5) Absolute Lymphs (auto) 1.47 (1.0-4.6) Absolute Monos (auto) 0.79 (0.0-1.3) Lymphocytes % 20.1 L (24.0-44.0) % Monocytes % 10.8 (0.0-12.0) % Eosinophils % 2.5 (0.00-5.0) % Basophils % 0.4 (0.0-0.4) % Absolute Granulocytes 4.85 (1.4-6.9) Basophils # 0.03 (0-0.4) PT (8.83-12.87) SECONDS INR (0.8-3.0) Sodium 138 (137-145) mmol/L Potassium 3.5 (3.5-5.1) mmol/L Chloride 106 (98-107) mmol/L Carbon Dioxide 26 (22-30) mmol/L Anion Gap 10.1 (5-15) MEQ/L BUN 27 H (9-20) mg/dL Creatinine 0.90 (0.66-1.25) mg/dL Estimated GFR > 60.0 ML/MIN Glucose 127 H (74-106) mg/dL Calcium 8.6 (8.4-10.2) mg/dL SARS-CoV-2 (PCR) NEGATIVE (NEGATIVE) 11/01/20 Range/Units 05:00 WBC (4.0-10.5) K/mm3 RBC (4.1-5.6) M/mm3 Hgb (12.5-18.0) gm/dl Hct (42-50) % MCV (78-100) fl MCH (26-32) pg MCHC (32-36) g/dl RDW (11.5-14.0) % Plt Count (150-450) K/mm3 MPV (7.5-11.0) fl Gran % (36.0-66.0) % Eos # (Auto) (0-0.5) Absolute Lymphs (auto) (1.0-4.6) Absolute Monos (auto) (0.0-1.3) Lymphocytes % (24.0-44.0) % Monocytes % (0.0-12.0) % Eosinophils % (0.00-5.0) % Basophils % (0.0-0.4) % Absolute Granulocytes (1.4-6.9) Basophils # (0-0.4) PT 29.2 H (8.83-12.87) SECONDS INR 2.56 (0.8-3.0) Sodium (137-145) mmol/L Potassium (3.5-5.1) mmol/L Chloride (98-107) mmol/L Carbon Dioxide (22-30) mmol/L Anion Gap (5-15) MEQ/L BUN (9-20) mg/dL Creatinine (0.66-1.25) mg/dL Estimated GFR ML/MIN Glucose (74-106) mg/dL Calcium (8.4-10.2) mg/dL SARS-CoV-2 (PCR) (NEGATIVE) Radiology Exams: Radiology Procedures Category Date Time Status ABDOMEN AND PELVIS W/0 CONTRAS [CT] Stat Exams 10/30/20 11:06 Completed CHEST WITHOUT CONTRAST [CT] Stat Exams 10/30/20 11:07 Completed PELVIS (1 OR 2 VIEWS) Stat Exams 10/30/20 13:12 Completed Multi-Disciplinary Progress Notes: Multi-Disciplinary Progress Notes 10/31/20 14:52 Case Management Note by Annetta Umana ORDER FAXED TO [facility] AT THIS TIME FOR HOSPITAL BED PER FAMILY REQUEST Initialized on 10/31/20 14:52 - END OF NOTE Assessment/Plan (1) Constipation Current Visit: Yes Status: Acute Assessment & Plan: resolved with stool softener Code(s): K59.00 - CONSTIPATION, UNSPECIFIED (2) Fall with injury Current Visit: Yes Status: Acute Assessment & Plan: Still requiring high dose of pain medication, will add prn iv pain medications Code(s): W19.XXXA - UNSPECIFIED FALL, INITIAL ENCOUNTER
[2020-11-01] MEDS ORDERED: MORPHINE SULFATE 2 MG INJ IV PRN (10:49)
[2020-11-01] MEDS ORDERED: Coumadin 5 MG PO SCH (18:00)
[2020-11-01] MEDS: ZOCOR 20MG PO SCH (20:08)
[2020-11-01] MEDS: Zanaflex 4 MG PO PRN (20:08)
[2020-11-02 05:11] LABS: Hematocrit 43.4 % (42-50); Hemoglobin 13.7 gm/dl (12.5-18.0); Mean Cell Volume 93.5 fl (78-100); Mean Corpuscular Hemoglobin 29.5 pg (26-32); Mean Corpuscular Hgb Concent. 31.6 g/dl (32-36); Mean Platelet Volume 9.9 fl (7.5-11.0); Platelet Count 203 K/mm3 (150-450); Red Blood Count 4.64 M/mm3 (4.1-5.6); Red Cell Distribution Width 15.4 % (11.5-14.0); White Blood Count 5.9 K/mm3 (4.0-10.5)
[2020-11-02 05:34] LABS: INR 2.62 (0.8-3.0); PROTIME 29.9 SECONDS (8.83-12.87)
[2020-11-02] MEDS: Norco 10/325 MG Tablet PO PRN (10:21)
--- NOTE | 2020-11-02 11:27 | PCM.NOTE ---
Date and Time: 11/02/20 1123 Subjective Assessment: Pt. notes slight coughing spell last night and can hardly get around today. Unable to ambulate by himself, despite having a good day yesterday until he reflared his injury. - Review of Systems Constitutional: No Fever, No Chills Eyes: No Symptoms Ears, Nose, & Throat: No Symptoms Respiratory: No Cough, No Short Of Breath Cardiac: Chest Pain (lateral left chest wall, ), No Edema, No Syncope Abdominal/Gastrointestinal: Abdominal Pain, No Nausea, No Vomiting, No Diarrhea Genitourinary Symptoms: No Dysuria Musculoskeletal: No Back Pain, No Neck Pain Skin: No Rash Neurological: No Dizziness, No Focal Weakness, No Sensory Changes Psychological: No Symptoms Endocrine: No Symptoms Hematologic/Lymphatic: No Symptoms Immunological/Allergic: No Symptoms Objective Exam General Appearance: no apparent distress Neurologic Exam: alert, cooperative Skin Exam: normal color, warm, dry Neck Exam: normal inspection Respiratory Exam: normal breath sounds, chest tenderness (lateral left chest wall) Cardiovascular Exam: regular rate/rhythm Gastrointestinal/Abdomen Exam: soft, normal bowel sounds, tenderness (lulateral quadrant) Extremity Exam: normal inspection OBJECTIVE DATA Vital Signs: Vital Signs - 24 hr Temp Pulse Resp BP Pulse Ox 11/02/20 09:08 90 L 11/02/20 07:17 98.1 F 79 18 117/70 94 L 11/02/20 04:00 97.8 F 60 20 93/57 90 L 11/02/20 00:00 97.3 F 60 22 89/58 95 11/01/20 20:00 97.3 F 108 H 20 134/67 99 11/01/20 18:02 91 L 11/01/20 16:00 98.2 F 80 20 111/57 90 L 11/01/20 12:00 98.0 F 87 20 94/61 95 Pain Assessment - Last Documented Pain Intensity 5 Pain Scale Used 0-10 Pain Scale Intake and Output: Intake & Output 10/30/20 10/31/20 11/01/20 11/02/20 11:59 11:59 11:59 11:59 Intake Total 2173 1250 720 Output Total 575 892 6440 Balance 1848 780 -630 Weight 102.8 kg 103 kg Lab Results: Lab Results-Last 24 Hours 12/13/20 12/13/20 Range/Units 04:58 04:58 WBC 5.9 (4.0-10.5) K/mm3 RBC 4.64 (4.1-5.6) M/mm3 Hgb 13.7 (12.5-18.0) gm/dl Hct 43.4 (42-50) % MCV 93.5 (78-100) fl MCH 29.5 (26-32) pg MCHC 31.6 L (32-36) g/dl RDW 15.4 H (11.5-14.0) % Plt Count 203 (150-450) K/mm3 MPV 9.9 (7.5-11.0) fl PT 29.9 H (8.83-12.87) SECONDS INR 2.62 (0.8-3.0) Multi-Disciplinary Progress Notes: Multi-Disciplinary Progress Notes 11/02/20 10:09 Physical Therapy Note by Ivelisse Bailey PT. SEEN BY P.T. THIS DATE. REPORTS HE IS DOING BETTER. STATES HE IS MOST COMFORTABLE IN RECLINER AND THAT IS WHERE HE SLEPT LAST NIGHT. RATES L T-SPINE RIB PN AT 0/10 AT REST BUT INCREASES TO 5-8 W/ COUGHING AND FUNCTIONAL MOBILITY. PT. IN CHAIR UPON P.T. ARRIVAL TO ROOM. AGREEABLE TO PT. PERFORMED SIT TO STAND W/ CGA-SBA. PN NOTED W/ TRANSFER IN L RIBS/T-SPINE. PT. AMBULATED 50' IN ROOM W/ SBA. STILL REPORTS L LE FEELS WEAK AND UNSTABLE W/ WB, BUT DID NOT DEMO INSTABILITY W/ GAIT AND WALKER. PT. ABLE TO NEGOTIATE TURN SLOWLY W/ WALKER BUT REPORTS INCREASED PN W/ TWISTING. APPLIED CP TO L T-SPINE RIBS AFTER RX. DISCUSSED HHC W/ PT. 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 PT. DOES HAVE A ROLLATOR AT HOME. PT. REPORTS HE IS MOST INTERESTED IN SOMEONE TO HELP W/ HOUSEWORK. FEEL PT. WOULD BE SAFER AT HOME W/ HHC FOR NURSING, AIDE, AND PT UPON D/C IF HE DOES NOT GO HOME W/ FAMILY. WILL CONT. PT TO MAXIMIZE FUNCTIONAL POTENTIAL UNTIL D/C. IVELISSE BAILEY PT Initialized on 11/02/20 10:09 - END OF NOTE Assessment/Plan (1) Constipation Current Visit: Yes Status: Acute Assessment & Plan: resolved Code(s): K59.00 - CONSTIPATION, UNSPECIFIED (2) Fall with injury Current Visit: Yes Status: Acute Assessment & Plan: pain back to level of yesterday, will continue support and hope for improvement and d/c to family tomorrow, no home health care Code(s): W19.XXXA - UNSPECIFIED FALL, INITIAL ENCOUNTER
[2020-11-02] MEDS: Lexapro 10 MG PO SCH (12:13)
[2020-11-02] MEDS: LASIX 20 MG PO SCH (12:13)
[2020-11-02] MEDS: ENTRESTO 49 MG-51 MG TABLET PO SCH (12:13)
[2020-11-02] MEDS: Zestril 20 MG PO SCH ×2 (12:13→21:08)
[2020-11-02] MEDS: Flomax 0.4 MG PO SCH (12:13)
[2020-11-02] MEDS: COREG 12.5 MG PO SCH ×2 (12:13→21:08)
[2020-11-02] MEDS: Protonix 40MG Tablet PO SCH (12:13)
[2020-11-02] MEDS: Colace 100 MG PO SCH ×2 (12:13→21:08)
[2020-11-02] MEDS: ECOTRIN 81 MG PO SCH (12:13)
[2020-11-02] MEDS: Coumadin 5 MG PO SCH (17:10)
[2020-11-02] MEDS: NORVASC 5 MG PO SCH (19:29)
[2020-11-02] MEDS: ZOCOR 20MG PO SCH (21:08)
[2020-11-02] MEDS: Zanaflex 4 MG PO PRN (21:08)
[2020-11-03 05:59] LABS: INR 2.79 (0.8-3.0); PROTIME 31.9 SECONDS (8.83-12.87)
[2020-11-03] MEDS ORDERED: CITROMA 296 ML PO ONE (08:42)
--- NOTE | 2020-11-03 08:43 | PCM.NOTE ---
Date and Time: 11/03/20 0840 Subjective Assessment: notes some improvement in pain, he is able to walk short distance in the room to bathroom etc. hasn't had a bowel movement since 3 days ago but feels like he needs to go Objective Exam General Appearance: no apparent distress Neurologic Exam: alert, oriented x 3, cooperative Respiratory Exam: normal breath sounds, lungs clear, No respiratory distress Cardiovascular Exam: irregular Gastrointestinal/Abdomen Exam: soft, No tenderness, No mass Back Exam: decreased range of motion OBJECTIVE DATA Vital Signs: Vital Signs - 24 hr Temp Pulse Resp BP Pulse Ox 11/03/20 08:00 97.9 F 60 16 120/68 92 L 11/03/20 04:00 97.8 F 65 20 106/61 95 11/03/20 00:00 97.9 F 60 20 116/74 96 11/02/20 20:00 97.1 F 69 18 108/64 93 L 11/02/20 19:17 88 L 11/02/20 15:47 98.3 F 78 18 107/67 95 11/02/20 12:00 98.3 F 84 20 106/68 93 L 11/02/20 09:08 90 L Pain Assessment - Last Documented Pain Intensity 0 Pain Scale Used FLACC Intake and Output: Intake & Output 10/31/20 11/01/20 11/02/20 11/03/20 11:59 11:59 11:59 11:59 Intake Total 2173 8516 703 8514 Output Total 543 206 4802 600 Balance 1848 780 -630 570 Weight 103 kg Lab Results: Lab Results-Last 24 Hours 11/03/20 Range/Units 04:55 PT 31.9 H (8.83-12.87) SECONDS INR 2.79 (0.8-3.0) Radiology Exams: Radiology Procedures Category Date Time Status ABDOMEN WITH CONTRAST [CT] Routine Exams 11/03/20 08:38 Ordered Multi-Disciplinary Progress Notes: Multi-Disciplinary Progress Notes 11/02/20 10:09 Physical Therapy Note by Ivelisse Bailey PT. SEEN BY P.T. THIS DATE. REPORTS HE IS DOING BETTER. STATES HE IS MOST COMFORTABLE IN RECLINER AND THAT IS WHERE HE SLEPT LAST NIGHT. RATES L T-SPINE RIB PN AT 0/10 AT REST BUT INCREASES TO 5-8 W/ COUGHING AND FUNCTIONAL MOBILITY. PT. IN CHAIR UPON P.T. ARRIVAL TO ROOM. AGREEABLE TO PT. PERFORMED SIT TO STAND W/ CGA-SBA. PN NOTED W/ TRANSFER IN L RIBS/T-SPINE. PT. AMBULATED 50' IN ROOM W/ SBA. STILL REPORTS L LE FEELS WEAK AND UNSTABLE W/ WB, BUT DID NOT DEMO INSTABILITY W/ GAIT AND WALKER. PT. ABLE TO NEGOTIATE TURN SLOWLY W/ WALKER BUT REPORTS INCREASED PN W/ TWISTING. APPLIED CP TO L T-SPINE RIBS AFTER RX. DISCUSSED HHC W/ PT. 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 PT. DOES HAVE A ROLLATOR AT HOME. PT. REPORTS HE IS MOST INTERESTED IN SOMEONE TO HELP W/ HOUSEWORK. FEEL PT. WOULD BE SAFER AT HOME W/ HHC FOR NURSING, AIDE, AND PT UPON D/C IF HE DOES NOT GO HOME W/ FAMILY. WILL CONT. PT TO MAXIMIZE FUNCTIONAL POTENTIAL UNTIL D/C. IVELISSE BAILEY, PT Initialized on 11/02/20 10:09 - END OF NOTE Assessment/Plan (1) Left kidney mass Current Visit: Yes Status: Acute Assessment & Plan: ct with contrast to further characterize uncertain lesion on initial ct scan Code(s): N28.89 - OTHER SPECIFIED DISORDERS OF KIDNEY AND URETER (2) Intractable low back pain Current Visit: Yes Status: Acute Assessment & Plan: slow improvement, continue PT and pain control Code(s): M54.5 - LOW BACK PAIN (3) Constipation Current Visit: Yes Status: Acute Assessment & Plan: mag citrate, on colace 100mg bid Code(s): K59.00 - CONSTIPATION, UNSPECIFIED (4) Fall with injury Current Visit: Yes Status: Acute Code(s): W19.XXXA - UNSPECIFIED FALL, INITIAL ENCOUNTER (5) Afib Current Visit: No Status: Chronic Qualifiers: Code(s): I48.91 - UNSPECIFIED ATRIAL FIBRILLATION (6) COPD (chronic obstructive pulmonary disease) Current Visit: No Status: Chronic Qualifiers: (7) HTN (hypertension) Current Visit: No Status: Chronic Qualifiers: Code(s): I10 - ESSENTIAL (PRIMARY) HYPERTENSION
[2020-11-03] MEDS: Flomax 0.4 MG PO SCH (08:54)
[2020-11-03] MEDS: ENTRESTO 49 MG-51 MG TABLET PO SCH (08:54)
[2020-11-03] MEDS: Lexapro 10 MG PO SCH (08:54)
[2020-11-03] MEDS: Colace 100 MG PO SCH (08:55)
[2020-11-03] MEDS: ECOTRIN 81 MG PO SCH (08:55)
[2020-11-03] MEDS: Protonix 40MG Tablet PO SCH (08:55)
[2020-11-03] MEDS: COREG 12.5 MG PO SCH (08:55)
[2020-11-03] MEDS: LASIX 20 MG PO SCH (08:55)
[2020-11-03] MEDS: Zestril 20 MG PO SCH (08:55)
[2020-11-03] MEDS ORDERED: solu-MEDROL 40 MG IV SCH (11:30)
[2020-11-03] MEDS ORDERED: BENADRYL 50 MG/ML IV SCH (14:30)
--- NOTE | 2020-11-03 16:13 | PCM.DS ---
Discharge Summary Date of Admission: 10/30/20 15:54 Admitting Physician: SIMEON ABURTO Primary Care Provider: SIMEON ABURTO Allergies Allergies Shellfish *RETIRED-03/14/13 [Shellfish] Allergy (Mild, Verified 10/25/20 13:26) Hives iodine Allergy (Verified 10/25/20 13:26) shellfish allergy lorazepam [From Ativan] Allergy (Verified 10/25/20 13:26) confusion combative midazolam HCl [From Versed] Allergy (Verified 10/25/20 13:26) confusion combative Hospital Summary - Hospital Course Hospital Course: patient was admitted s/p fall with left lower back and rib pain, unable to ambulate. has improved pain control and functional status is improved and able to ambulate to restroom. he is going home with family, had a left renal mass that is pending contrast study to evaluate at the time of discharge, scan has not been read yet - Vitals & Intake/Output Vital Signs: Vital Signs Temperature 97.8 F 11/03/20 12:00 Pulse Rate 60 11/03/20 12:00 Respiratory Rate 20 11/03/20 12:00 Blood Pressure 99/59 11/03/20 12:00 O2 Sat by Pulse Oximetry 95 11/03/20 12:00 Intake & Output: Intake & Output 11/01/20 11/02/20 11/03/20 11/04/20 11:59 11:59 11:59 11:59 Intake Total 2777 749 8160 Output Total 470 1350 1000 250 Balance 780 -630 530 -250 - Lab Result Diagrams: 11/02/20 04:58 11/01/20 05:00 Lab Results-Last 24 Hrs: Lab Results-Last 24 Hours 11/03/20 Range/Units 04:55 PT 31.9 H (8.83-12.87) SECONDS INR 2.79 (0.8-3.0) - Radiology Exams Ordered Rad Exams-Entire Visit: Radiology Procedures Category Date Time Status ABDOMEN WITH CONTRAST [CT] Routine Exams 11/03/20 08:38 Ordered - Procedures and Test Procedures and Tests throughout Hospitalization: Therapy Orders & Screens 10/30/20 17:26 Oxygen NASAL CANNULA 2 lpm Comment: Diagnosis: L thoracic contusion 10/31/20 08:07 PT Eval & Treat ( Order) ONCE Reason for Eval:: left lower back/flank pain, left leg/hip pain status post fall weakness Diagnosis: L THORACIC CONTUSION 11/01/20 10:32 PT Eval & Treat ( Order) ONCE Reason for Eval:: strengthening Diagnosis: L THORACIC CONTUSION Discharge Exam General Appearance: no apparent distress Neurologic Exam: alert, oriented x 3, cooperative Respiratory Exam: normal breath sounds, lungs clear, No respiratory distress Cardiovascular Exam: irregular Gastrointestinal/Abdomen Exam: soft, No tenderness, No mass Back Exam: decreased range of motion, other (tenderness left lower chest wall and musculature in lower t-spine) Final Diagnosis/Problem List - Final Discharge Diagnosis/Problem (1) Left kidney mass Current Visit: Yes Status: Acute Assessment & Plan: ct with contrast pending, will f/u as outpatient Code(s): N28.89 - OTHER SPECIFIED DISORDERS OF KIDNEY AND URETER (2) Intractable low back pain Current Visit: Yes Status: Acute Assessment & Plan: improved, home on po pain meds and family to help. has declined [facility] for PT Code(s): M54.5 - LOW BACK PAIN (3) Constipation Current Visit: Yes Status: Acute Code(s): K59.00 - CONSTIPATION, UNSPECIFIED (4) Fall with injury Current Visit: Yes Status: Acute Code(s): W19.XXXA - UNSPECIFIED FALL, INITIAL ENCOUNTER (5) Afib Current Visit: No Status: Chronic Code(s): I48.91 - UNSPECIFIED ATRIAL FIBRILLATION (6) COPD (chronic obstructive pulmonary disease) Current Visit: No Status: Chronic (7) HTN (hypertension) Current Visit: No Status: Chronic Code(s): I10 - ESSENTIAL (PRIMARY) HYPERTENSION - Discharge Disposition: Home, Self-Care Condition: Stable Prescriptions: New Docusate Sodium 100 mg [Colace 100 MG] 100 mg PO BID #60 capsule Hydrocodone/APAP 10/325 mg [[place] 10/325 MG Tablet] 1 tab PO Q6H PRN PRN #28 tablet MDD 4 PRN Reason: Pain Continue Furosemide 20 mg [Lasix 20 mg] 20 mg PO DAILY Carvedilol 25 mg PO BID Esomeprazole Magnesium [Nexium] 20 mg PO DAILY Tamsulosin HCl 0.4 mg [Flomax 0.4 MG] 0.4 mg PO DAILY Aspirin EC 81 mg [Ecotrin 81 mg] 81 mg PO DAILY Warfarin Sodium 5 mg [Coumadin 5 MG] 5 mg PO UD Lisinopril 20 mg [Zestril 20 MG] 20 mg PO BID Rosuvastatin Calcium 10 mg PO DAILY Escitalopram Oxalate 10 mg PO DAILY Sacubitril/Valsartan [Entresto 49 mg-51 mg Tablet] 1 tab PO DAILY Amlodipine Besylate 1 tab PO DAILY Discontinued Hydrocodone/APAP 5/325 [[place] 5/325 mg] 1 each PO Q12H PRN PRN #5 tablet MDD 2 PRN Reason: Pain Additional Instructions: ORDER WAS SENT TO [facility] FOR HOSPITAL BED. THEIR PHONE NUMBER IS [phone] Follow up with: SIMEON ABURTO MD [Primary Care Provider] -
--- NOTE | 2020-11-03 17:14 | XRAY ---
Exam: CT of the abdomen with IV contrast from 11/03/2020. Total DLP: 1815.54 mGy-cm Comparison: CT of the abdomen and pelvis without IV contrast 10/30/2020. Indication: 89-year-old male with left renal mass. Technique: Post-IV contrast axial images were obtained through the abdomen during automated injection of 80 cc of Isovue-370. Delayed axial images were obtained as well. Reconstructed coronal and sagittal images were created and reviewed. The patient was unable to raise his arms above his head for this exam. Findings: There was some question as to whether the patient was allergic to iodine, as he replied in the affirmative to this question on the information sheet. Therefore, the patient was premedicated prior to this exam with 40 mg of IV Solu-Medrol 4 hours before the study and 50 mg of IV Benadryl 1 hour prior study. With this regimen, the patient had no adverse reaction during or immediately following the exam. 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 The CT jewel sorter image also reveals evidence of bilateral total hip replacements. The visualized lung bases reveal minimal bibasilar chronic changes. The heart size appears towards the upper limits of normal in size. The study confirms the presence of a 2.8 cm in diameter solid mass lesion at the lateral margin of the left kidney at the junction of the upper pole and midpole. On coronal image #106, this lesion measures 2.45 cm x 2.9 cm in cross section. This is worrisome for a small renal cell carcinoma. The remainder of the left kidney appears unremarkable and functions normally. The right kidney functions. Incidentally, there appears to be a round 1.8 cm in diameter low-attenuation lesion at the posterior medial margin of the middle third of the right kidney on axial image #31 of series 4. This appears to represent a cyst. The liver is remarkable for a couple small calcified granulomas. No focal liver mass or biliary duct distention is seen. The gallbladder is mildly prominent measuring 4.15 cm in width on axial image #26 of series 2. This is not significantly changed from the previous CT.. The spleen is relatively small and reveals scattered calcified granulomas. Vascular calcification is seen within a tortuous splenic artery in the left upper quadrant. The pancreas reveals mild relative atrophy within the body and tail portions. No mass is seen. The adrenal glands appear unremarkable. Moderate atherosclerotic vascular calcification is seen within the abdominal aorta and proximal iliac arteries. The aorta is tortuous, but no abdominal aortic aneurysm is seen. No abnormal retroperitoneal lymphadenopathy is seen. There is no free intraperitoneal air or free peritoneal fluid within the abdomen. The visualized bowel appears nonobstructed. There is convexity of the mid lumbar spine toward the right. There are moderate degenerative changes, particularly at L2-L3 and L5-S1. 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 The bones are demineralized. Impression: 1. The postcontrast study confirms the presence of a 2.8 cm in diameter solid left renal mass at the lateral aspect of the upper to midportion of the left kidney. This demonstrates some heterogeneous attenuation on the delayed images. I cannot exclude small renal cell carcinoma. 2. Incidentally, there appears to be a 1.8 cm in diameter cyst at the posterior medial aspect of the middle third of the right kidney. This appears relatively stable dating back to a CT from 06/04/2014. 3. No other acute findings are seen within the abdomen. Incidental findings are seen, as discussed above.
[2020-11-03 17:36] VITALS: BP 137/68; PULSE 64; O2SAT 98
[2020-11-03] MEDS: Coumadin 5 MG PO SCH (18:57)
== END 2020-11-03 20:00 | disposition home or self-care (01) ==
LOC: ED 09:19 → MED SURG 15:54
PROVIDERS: ADMIT Family Medicine; ATTEND Family Medicine
DX: N28.89 Other specified disorders of kidney and ureter (principal); M54.5 Low back pain; K59.00 Constipation, unspecified; I48.91 Unspecified atrial fibrillation; J44.9 Chronic obstructive pulmonary disease, unspecified; I10 Essential (primary) hypertension; Z79.899 Other long term (current) drug therapy; Z79.01 Long term (current) use of anticoagulants; S20.219A Contusion of unspecified front wall of thorax, initial encounter; V86.45XA Person injured while boarding or alighting from a 3- or 4- wheeled all-terrain vehicle (ATV), initial encounter; R07.89 Other chest pain; Z23 Encounter for immunization
CPT/HCPCS: 36000; 36415; 71250; 72170; 74160; 74176; 80048; 80053; 81001; 84484; 85025; 85027; 85610; 93005; 94760; 97161; 97530; 99285; G0008; G0378; U0003; 90662; J1170; J1200; J2920; A9270-GY